=== PATIENT | male | born 1965 | race American Indian/Alaskan Native ===

== ENCOUNTER 2017-10-19 13:49 | Inpatient (IN) | payer MEDICAID, OTHER ==
[2017-10-19 13:49] VITALS: BMI 27.3
[2017-10-19] MEDS ORDERED: Albuterol-Ipratrop 3 mg / 0.5 (3 ml) UD INH STA (14:32)
--- NOTE | 2017-10-19 14:45 | C.PDOC ---
History Of Present Illness Patient is a 52 y/o M presenting for detox from heroin. Last used this morning. Denies alcohol use. Reports chronic bronchitis and reports that he refuses to use his inhaler but will take a breathing treatment in the ED. Denies IVDA. Denies other somatic complaints. Pre-screened prior to arrival. Time Seen by Provider: 10/19/17 14:07 Chief Complaint (Nursing): Medical Clearance Past Medical History Vital Signs: Last Vital Signs Temp 98.1 F 10/19/17 16:51 Pulse 54 L 10/19/17 16:51 Resp 20 10/19/17 16:51 BP 161/82 H 10/19/17 16:51 Pulse Ox 92 L 10/19/17 17:13 - Medical History PMH: Bronchitis Denies: Diabetes, Hepatitis, HIV, HTN, Seizures, Sexually Transmitted Disease Family History: States: No Known Family Hx - Social History Hx Alcohol Use: No Hx Substance Use: Yes Review Of Systems Except As Marked, All Systems Reviewed And Found Negative. Constitutional: Negative for: Fever, Chills Cardiovascular: Negative for: Chest Pain, Palpitations, Orthopnea Respiratory: Positive for: Cough (x2 weeks), Wheezing. Negative for: Shortness of Breath, SOB with Excertion Gastrointestinal: Negative for: Nausea, Vomiting, Abdominal Pain, Diarrhea, Constipation Musculoskeletal: Negative for: Neck Pain Skin: Negative for: Rash Neurological: Negative for: Weakness, Numbness Psych: Negative for: Anxiety, Depression, Suicidal ideation Physical Exam - Physical Exam Appears: Well, Non-toxic, No Acute Distress Skin: Normal Color, Warm, Dry Head: Atraumatic, Normacephalic Eye(s): bilateral: Normal Inspection, PERRL, EOMI Neck: Supple Chest: Symmetrical Cardiovascular: Rhythm Regular Respiratory: Wheezing (scant) Gastrointestinal/Abdominal: Soft, No Tenderness, No Mass, No Distention Back: Normal Inspection, No CVA Tenderness Extremity: Normal ROM Neurological/Psych: Oriented x3, Normal Speech, Normal Cranial Nerves, Normal Motor, Normal Sensation Gait: Steady ED Course And Treatment - Laboratory Results Result Diagrams: 10/19/17 14:50 10/19/17 14:50 O2 Sat by Pulse Oximetry: 92 Medical Decision Making Medical Decision Making: EKG shows NSR at 62 bpm with normal intervals and no ST changes. Cxray negative for active pulmonary disease. Given nebulizer for wheezing on exam ( has home nebulizer that he refuses to use) UA shows 9 wbc, trace leukocytes, 1 rbc and rare bacteria. Denies dysuria, abdominal pain, flank pain, or penile discharge. Instructed to follow-up with urologist after dc from detox. On reevaluation, wheezing is improved. He is ambulating around the ED without issue with O2 sat>95%. He has no somatic complaints. Medically cleared and accepted by Dr. Durbin Disposition - Disposition Disposition: HOSPITALIZED Disposition Time: 15:41 Condition: GOOD - Clinical Impression Clinical Impression: Hematuria, Opioid use disorder, mild, abuse, Leukocytes in urine
[2017-10-19] MEDS ORDERED: Albuterol-Ipratrop 3 mg / 0.5 (3 ml) UD ONE (14:51)
[2017-10-19 14:57] LABS: BASO # 0.1 K/uL (0.0-0.2); BASO % 1.3 % (0.0-2.0); EOS # 0.1 K/uL (0.0-0.7); EOS % 1.3 % (0.0-4.0); HEMATOCRIT 46.2 % (35.0-51.0); LYMPH # 1.3 K/uL (1.0-4.3); LYMPH % 19.6 % (20.0-40.0); MEAN CELL VOLUME 90.6 fL (80.0-94.0); MEAN PLATELET VOLUME 8.9 fL (7.2-11.7); MONO # 0.4 K/uL (0.0-0.8); MONO % 6.3 % (0.0-10.0); NRBC % 0.1 % (0.0-2.0); RED CELL DISTRIBUTION WIDTH 14.3 % (11.5-14.5); WHITE BLOOD COUNT 6.7 K/uL (4.8-10.8)
--- NOTE | 2017-10-19 14:59 | RAD ---
HISTORY: COMPARISON: No prior. TECHNIQUE: Chest PA and lateral FINDINGS: LINES AND TUBES: None. LUNG AND PLEURA: The lungs are well inflated. There is mild pulmonary venous congestion. HEART AND MEDIASTINUM: There is mild cardiomegaly. There is prominent central vasculature. The hilar and mediastinal contours are within normal limits. SKELETAL STRUCTURES: The bony structures are within normal limits for the patient's age. VISUALIZED UPPER ABDOMEN: Normal. OTHER FINDINGS: None. IMPRESSION: No active pulmonary disease.
[2017-10-19 15:01] LABS: RBC URINE 1 /hpf (0-3); URINE BACTERIA RARE (<OCC); URINE BILIRUBIN NEGATIVE (NEGATIVE); URINE BLOOD NEGATIVE (NEGATIVE); URINE COLOR Yellow (YELLOW); URINE GLUCOSE (UA) NORMAL (Normal); URINE KETONE NEGATIVE (NEGATIVE); URINE LEUKOCYTE ESTERASE TRACE Leu/uL (Negative); URINE PROTEIN NEGATIVE (NEGATIVE); URINE UROBILINOGEN NORMAL mg/dL (0.2-1.0); WBC URINE 9 /hpf (0-5)
[2017-10-19 15:21] LABS: ALB/GLOB RATIO 1.4 (1.0-2.1); ALCOHOL SERUM < 10 mg/dl (0-10); ALKALINE PHOSPHATASE 55 U/L (38-126); ALT/SGPT 50 U/L (21-72); AST/SGOT 36 U/L (17-59); BILIRUBIN,TOTAL 0.5 mg/dL (0.2-1.3); BLOOD UREA NITROGEN 14 mg/dL (9-20); CALCIUM 8.1 mg/dl (8.6-10.4); CARBON DIOXIDE 39 mmol/L (22-30); CHLORIDE 97 mmol/L (98-107); GFR AFRICAN-AMERICAN > 60; GLUCOSE,RANDOM 80 mg/dL (75-110); SODIUM 140 mmol/L (132-148); TOTAL PROTEIN 7.3 g/dL (6.3-8.3)
[2017-10-19] MEDS ORDERED: Albuterol HFA 90 mcg/actuation (8 g) INH PRN (16:48)
[2017-10-19] MEDS ORDERED: Aluminum Hydroxide/Magnesium Hydroxide Susp (30 mL) PO PRN (16:48)
[2017-10-19] MEDS ORDERED: Buprenorphine Hydrochloride 2 mg SL ONE ×2 (16:51→18:00)
--- NOTE | 2017-10-19 18:29 | PCM.BM ---
<Catalina Dsouza - Last Filed: 10/19/17 18:28> Treatment Plan Problems - Problems identified on initial assessmt potiential for opiate withdrawal Date Initiated: 10/19/17 Time Initiated: 18:28 Assessment reference: NA Status: Active Treatment assets and liabiliti Patient Assests: ADL independent, physically healthy Patient Liabilities: substance abuse - Milieu Protocol Maintain good personal hygiene: daily Encourage regular showers, daily Remind patient to perform daily oral care, daily Assist patient to perform ADL's Maintain personal safety: every shift Educate patient to report safety concerns to staff, every shift Monitor environment for contraband/sharps Medication safety: Monitor for expected outcome, potential side effects: every shift, Assess barriers to learning: every shift, Assess readiness for medication education: every shift <Wilfredo Cabello - Last Filed: 10/21/17 17:24> - Diagnosis (1) Opioid use disorder, severe, dependence Status: Acute Interventions: 10/21/17 17:23 Assess 7x/week regarding severity of withdrawal Educate regarding risks, benefits, side effects and alternatives of medications Use Motivational Interviewing for abstinence Use CBT for relapse prevention Medication management for withdrawal symptoms Encourage medication assisted treatment
[2017-10-20] MEDS ORDERED: Albuterol-Ipratrop 3 mg / 0.5 (3 ml) UD INH PRN (00:34)
--- NOTE | 2017-10-20 06:52 | CP.PCM.CON ---
<Carleen Tran E - Last Filed: 10/20/17 06:42> History of Present Illness - History of Present Illness History of Present Illness: Hospitalist service consult CC: " Wheezing" HPI: (Patient is uncooperative during the encounter) Patient is a 52 year old male with past medical history of bronchitis, who presents to [facility] for heroin detox; patient last used heroin yesterday morning. Consult was placed to the medicine hospitalist due to severe wheezing on exam. Patient states that he has baseline wheezing due to chronic bronchitis. Patient denies chest pain, palpitations, dizziness, headache, abdominal pain but admits to SOB, productive cough, and wheezing). PMD: Luis Eduardo Martinez PMHx: Bronchitis PSHx: Denies FHx: Denies Medications: Albuterol Inhaler ( does not use because he does not like it) Allergies: NKDA Social Hx: does not live alone (did not share who he lives with), admits to tobacco use since 18 years old (1 PPD), heroin use and denies ETOH use Past Patient History - Past Social History Smoking Status: Former Smoker - CARDIAC Hx Hypertension: No - PULMONARY Hx Bronchitis: Yes - NEUROLOGICAL Hx Seizures: No - HEMATOLOGICAL/ONCOLOGICAL Hx Human Immunodeficiency Virus (HIV): No - MUSCULOSKELETAL/RHEUMATOLOGICAL Hx Falls: No - GENITOURINARY/GYNECOLOGICAL Hx Sexually Transmitted Disorders: No - PSYCHIATRIC Hx Substance Use: Yes - SURGICAL HISTORY Hx Surgeries: No Meds Allergies/Adverse Reactions: Allergies Allergy/AdvReac Type Severity Reaction Status Date / Time No Known Allergies Allergy Verified 10/19/17 14:00 - Medications Medications: Current Medications Al Hydrox/Mg Hydrox/Simethicone (Maalox 30 Ml) 30 ml PO TID PRN PRN Reason: Indigestion / Heartburn Albuterol (Ventolin Hfa 90 Mcg/Actuation (8 G)) 1 puff INH RQ4 PRN PRN Reason: SOB Albuterol/Ipratropium (Duoneb 3 Mg/0.5 Mg (3 Ml) Ud) 3 ml INH RQ8 PRN PRN Reason: Shortness of Breath Last Admin: 10/20/17 00:50 Dose: 3 ml Buprenorphine HCl (Subutex) 0 mg SL .TAPER TRISHA PRN Reason: Taper Stop: 10/24/17 09:59 Clonidine HCl (Catapres) 0.1 mg PO Q8 PRN PRN Reason: COWS Score More or Equal to 5 Hydroxyzine HCl (Atarax) 25 mg PO Q4H PRN PRN Reason: Anxiety Loperamide HCl (Imodium) 2 mg PO Q8 PRN PRN Reason: Diarrhea Ondansetron HCl (Zofran Tab) 4 mg PO Q8 PRN PRN Reason: Nausea/Vomiting Trazodone HCl (Desyrel) 100 mg PO HS PRN PRN Reason: Insomnia Results - Vital Signs Recent Vital Signs: Last Vital Signs Temp 98.2 F 10/20/17 06:18 Pulse 55 L 10/20/17 06:18 Resp 18 10/20/17 06:18 BP 151/87 H 10/20/17 06:18 Pulse Ox 95 10/20/17 06:18 - Labs Result Diagrams: 10/19/17 14:50 10/19/17 14:50 Labs: Laboratory Results - last 24 hr 10/19/17 10/19/17 10/19/17 14:50 14:50 14:52 WBC 6.7 RBC 5.09 Hgb 14.8 Hct 46.2 MCV 90.6 MCH 29.0 MCHC 32.0 L RDW 14.3 Plt Count 209 MPV 8.9 Neut % (Auto) 71.5 Lymph % (Auto) 19.6 L [place] % (Auto) 6.3 Eos % (Auto) 1.3 Baso % (Auto) 1.3 Neut # 4.8 Lymph # 1.3 Sierra # 0.4 Eos # 0.1 Baso # 0.1 Sodium 140 Potassium 4.0 Chloride 97 L Carbon Dioxide 39 H Anion Gap 8 L BUN 14 Creatinine 0.8 Est GFR ( Amer) > 60 Est GFR (Non-Af Amer) > 60 Random Glucose 80 Calcium 8.1 L Total Bilirubin 0.5 AST 36 ALT 50 Alkaline Phosphatase 55 Total Protein 7.3 Albumin 4.3 Globulin 3.0 Albumin/Globulin Ratio 1.4 Urine Color Yellow Urine Clarity Clear Urine pH 5.0 Ur Specific [place] 1.016 Urine Protein Negative Urine Glucose (UA) Normal Urine Ketones Negative Urine Blood Negative Urine Nitrate Negative Urine Bilirubin Negative Urine Urobilinogen Normal Ur Leukocyte Esterase Trace Urine WBC (Auto) 9 H Urine RBC (Auto) 1 Ur Squamous Epith Cells 3 Urine Bacteria Rare Urine Opiates Screen Urine Methadone Screen Ur Barbiturates Screen Ur Phencyclidine Scrn Ur Amphetamines Screen U Benzodiazepines Scrn U Oth Cocaine Metabols U Cannabinoids Screen Alcohol, Quantitative < 10 Influenza Typ A,B (EIA) 10/19/17 10/19/17 14:52 14:56 WBC RBC Hgb Hct MCV MCH MCHC RDW Plt Count MPV Neut % (Auto) Lymph % (Auto) Sierra % (Auto) Eos % (Auto) Baso % (Auto) Neut # Lymph # Sierra # Eos # Baso # Sodium Potassium Chloride Carbon Dioxide Anion Gap BUN Creatinine Est GFR ( Amer) Est GFR (Non-Af Amer) Random Glucose Calcium Total Bilirubin AST ALT Alkaline Phosphatase Total Protein Albumin Globulin Albumin/Globulin Ratio Urine Color Urine Clarity Urine pH Ur Specific [place] Urine Protein Urine Glucose (UA) Urine Ketones Urine Blood Urine Nitrate Urine Bilirubin Urine Urobilinogen Ur Leukocyte Esterase Urine WBC (Auto) Urine RBC (Auto) Ur Squamous Epith Cells Urine Bacteria Urine Opiates Screen Positive H Urine Methadone Screen Negative Ur Barbiturates Screen Negative Ur Phencyclidine Scrn Negative Ur Amphetamines Screen Negative U Benzodiazepines Scrn Negative U Oth Cocaine Metabols Negative U Cannabinoids Screen Negative Alcohol, Quantitative Influenza Typ A,B (EIA) Negative for flu a/b <[place] P - Last Filed: 10/20/17 07:00> Meds - Medications Medications: Current Medications Al Hydrox/Mg Hydrox/Simethicone (Maalox 30 Ml) 30 ml PO TID PRN PRN Reason: Indigestion / Heartburn Albuterol/Ipratropium (Duoneb 3 Mg/0.5 Mg (3 Ml) Ud) 3 ml INH RQ6 TRISHA Budesonide (Pulmicort Respules) 0.5 mg INH RQ12 TRISHA Buprenorphine HCl (Subutex) 0 mg SL .TAPER TRISHA PRN Reason: Taper Stop: 10/24/17 09:59 Clonidine HCl (Catapres) 0.1 mg PO Q8 PRN PRN Reason: COWS Score More or Equal to 5 Hydroxyzine HCl (Atarax) 25 mg PO Q4H PRN PRN Reason: Anxiety Loperamide HCl (Imodium) 2 mg PO Q8 PRN PRN Reason: Diarrhea Ondansetron HCl (Zofran Tab) 4 mg PO Q8 PRN PRN Reason: Nausea/Vomiting Prednisone (Prednisone Tab) 40 mg PO DAILY TRISHA Stop: 10/25/17 10:01 Trazodone HCl (Desyrel) 100 mg PO HS PRN PRN Reason: Insomnia Results - Vital Signs Recent Vital Signs: Last Vital Signs Temp 98.2 F 10/20/17 06:18 Pulse 55 L 10/20/17 06:18 Resp 18 10/20/17 06:18 BP 151/87 H 10/20/17 06:18 Pulse Ox 95 10/20/17 06:18 - Labs Result Diagrams: 10/19/17 14:50 10/19/17 14:50 Labs: Laboratory Results - last 24 hr 10/19/17 10/19/17 10/19/17 14:50 14:50 14:52 WBC 6.7 RBC 5.09 Hgb 14.8 Hct 46.2 MCV 90.6 MCH 29.0 MCHC 32.0 L RDW 14.3 Plt Count 209 MPV 8.9 Neut % (Auto) 71.5 Lymph % (Auto) 19.6 L [place] % (Auto) 6.3 Eos % (Auto) 1.3 Baso % (Auto) 1.3 Neut # 4.8 Lymph # 1.3 Sierra # 0.4 Eos # 0.1 Baso # 0.1 Sodium 140 Potassium 4.0 Chloride 97 L Carbon Dioxide 39 H Anion Gap 8 L BUN 14 Creatinine 0.8 Est GFR ( Amer) > 60 Est GFR (Non-Af Amer) > 60 Random Glucose 80 Calcium 8.1 L Total Bilirubin 0.5 AST 36 ALT 50 Alkaline Phosphatase 55 Total Protein 7.3 Albumin 4.3 Globulin 3.0 Albumin/Globulin Ratio 1.4 Urine Color Yellow Urine Clarity Clear Urine pH 5.0 Ur Specific [place] 1.016 Urine Protein Negative Urine Glucose (UA) Normal Urine Ketones Negative Urine Blood Negative Urine Nitrate Negative Urine Bilirubin Negative Urine Urobilinogen Normal Ur Leukocyte Esterase Trace Urine WBC (Auto) 9 H Urine RBC (Auto) 1 Ur Squamous Epith Cells 3 Urine Bacteria Rare Urine Opiates Screen Urine Methadone Screen Ur Barbiturates Screen Ur Phencyclidine Scrn Ur Amphetamines Screen U Benzodiazepines Scrn U Oth Cocaine Metabols U Cannabinoids Screen Alcohol, Quantitative < 10 Influenza Typ A,B (EIA) 10/19/17 10/19/17 14:52 14:56 WBC RBC Hgb Hct MCV MCH MCHC RDW Plt Count MPV Neut % (Auto) Lymph % (Auto) Sierra % (Auto) Eos % (Auto) Baso % (Auto) Neut # Lymph # Sierra # Eos # Baso # Sodium Potassium Chloride Carbon Dioxide Anion Gap BUN Creatinine Est GFR ( Amer) Est GFR (Non-Af Amer) Random Glucose Calcium Total Bilirubin AST ALT Alkaline Phosphatase Total Protein Albumin Globulin Albumin/Globulin Ratio Urine Color Urine Clarity Urine pH Ur Specific [place] Urine Protein Urine Glucose (UA) Urine Ketones Urine Blood Urine Nitrate Urine Bilirubin Urine Urobilinogen Ur Leukocyte Esterase Urine WBC (Auto) Urine RBC (Auto) Ur Squamous Epith Cells Urine Bacteria Urine Opiates Screen Positive H Urine Methadone Screen Negative Ur Barbiturates Screen Negative Ur Phencyclidine Scrn Negative Ur Amphetamines Screen Negative U Benzodiazepines Scrn Negative U Oth Cocaine Metabols Negative U Cannabinoids Screen Negative Alcohol, Quantitative Influenza Typ A,B (EIA) Negative for flu a/b Attending/Attestation - Attestation I have personally seen and examined this patient.: Yes I have fully participated in the care of the patient.: Yes I have reviewed all pertinent clinical information: Yes Notes (Text): Assessment * Chronic bronchitis, and wheezing likely related with smoking and sniffing heroin, denies h/o asthma * Patient here mainly of heroin detox * Tobacco abuse of 1PPD Plan * Prednisone 40mg daily x 5 days * Pulmicort 0.5mg via neb bid * Duoneb q6hr * Counselled about tobacco and heroin cessation * Recommend out patient PFT and having PMD * See orders for detail.
[2017-10-20] MEDS: Albuterol-Ipratrop 3 mg / 0.5 (3 ml) UD INH SCH ×3 (08:39→20:53)
[2017-10-20] MEDS: Budesonide 0.5 mg/2 ml Inhal Susp UD INH SCH ×2 (08:46→20:53)
[2017-10-20] MEDS: Buprenorphine Hydrochloride 2 mg SL SCH (09:17)
--- NOTE | 2017-10-20 09:37 | CP.PCM.PN ---
<QuangBayron - Last Filed: 10/20/17 10:07> Subjective - Date & Time of Evaluation Date of Evaluation: 10/20/17 Time of Evaluation: 08:45 - Subjective Subjective: Medicine note- Hospitalist Service Patient was seen and examined at bedside. Patient reports that he does not feel short of breath, but he is actively wheezing. He says that he is usually wheezing at baseline. He states he still smokes ciggarettes, about 1 ppd since he was 18. No events overnight, per nursing. Objective - Vital Signs/Intake and Output Vital Signs (last 24 hours): Temp Pulse Resp BP Pulse Ox 98.2 F 55 L 18 151/87 H 95 10/20/17 06:18 10/20/17 06:18 10/20/17 06:18 10/20/17 06:18 10/20/17 06:18 - Medications Medications: Current Medications Al Hydrox/Mg Hydrox/Simethicone (Maalox 30 Ml) 30 ml PO TID PRN PRN Reason: Indigestion / Heartburn Albuterol/Ipratropium (Duoneb 3 Mg/0.5 Mg (3 Ml) Ud) 3 ml INH RQ6 TIRSHA Last Admin: 10/20/17 08:39 Dose: 3 ml Budesonide (Pulmicort Respules) 0.5 mg INH RQ12 TRISHA Last Admin: 10/20/17 08:46 Dose: 0.5 mg Buprenorphine HCl (Subutex) 0 mg SL .TAPER TRISHA PRN Reason: Taper Stop: 10/24/17 09:59 Last Admin: 10/20/17 09:17 Dose: 8 mg Clonidine HCl (Catapres) 0.1 mg PO Q8 PRN PRN Reason: COWS Score More or Equal to 5 Hydroxyzine HCl (Atarax) 25 mg PO Q4H PRN PRN Reason: Anxiety Loperamide HCl (Imodium) 2 mg PO Q8 PRN PRN Reason: Diarrhea Ondansetron HCl (Zofran Tab) 4 mg PO Q8 PRN PRN Reason: Nausea/Vomiting Prednisone (Prednisone Tab) 40 mg PO DAILY TRISHA Stop: 10/25/17 10:01 Trazodone HCl (Desyrel) 100 mg PO HS PRN PRN Reason: Insomnia - Labs Labs: 10/19/17 14:50 10/19/17 14:50 - Constitutional Appears: Non-toxic, No Acute Distress - Head Exam Head Exam: ATRAUMATIC, NORMAL INSPECTION, NORMOCEPHALIC - Eye Exam Pupil Exam: NORMAL ACCOMODATION, PERRL - ENT Exam ENT Exam: Mucous Membranes Moist - Respiratory Exam Respiratory Exam: Wheezes, NORMAL BREATHING PATTERN. absent: Prolonged Expiratory Phase, Rales, Rhonchi - Cardiovascular Exam Cardiovascular Exam: REGULAR RHYTHM, +S1, +S2 - GI/Abdominal Exam GI & Abdominal Exam: Soft, Normal Bowel Sounds. absent: Tenderness, Diminished Bowel Sounds, Hernia, Hypoactive Bowel Sounds - Neurological Exam Neurological Exam: Alert, Awake, Oriented x3 - Psychiatric Exam Psychiatric exam: Normal Affect, Normal Mood - Skin Skin Exam: Dry, Intact, Normal Color, Warm Assessment and Plan - Assessment and Plan (Free Text) Assessment: * Chronic bronchitis, and wheezing likely related with smoking and sniffing heroin, denies h/o asthma * CXR 10/19/17- No active pulmonary disease * Prednisone 40mg daily x 5 days * Pulmicort 0.5mg via neb bid * Duoneb q6hr * Heroin Detox * Management as per psychiatry * * Tobacco abuse of 1PPD * Counselled about tobacco and heroin cessation * Recommend out patient PFT and having PMD <Armando Sol - Last Filed: 10/20/17 11:29> Objective - Vital Signs/Intake and Output Vital Signs (last 24 hours): Temp Pulse Resp BP Pulse Ox 98.2 F 55 L 18 151/87 H 95 10/20/17 06:18 10/20/17 06:18 10/20/17 06:18 10/20/17 06:18 10/20/17 06:18 - Medications Medications: Current Medications Al Hydrox/Mg Hydrox/Simethicone (Maalox 30 Ml) 30 ml PO TID PRN PRN Reason: Indigestion / Heartburn Albuterol/Ipratropium (Duoneb 3 Mg/0.5 Mg (3 Ml) Ud) 3 ml INH RQ6 COUNTS INCLUDE 234 BEDS AT THE [facility] Last Admin: 10/20/17 08:39 Dose: 3 ml Budesonide (Pulmicort Respules) 0.5 mg INH RQ12 COUNTS INCLUDE 234 BEDS AT THE [facility] Last Admin: 10/20/17 08:46 Dose: 0.5 mg Buprenorphine HCl (Subutex) 8 mg SL DAILY COUNTS INCLUDE 234 BEDS AT THE [facility] PRN Reason: Taper Stop: 10/24/17 09:59 Last Admin: 10/20/17 09:17 Dose: 8 mg Clonidine HCl (Catapres) 0.1 mg PO Q8 PRN PRN Reason: COWS Score More or Equal to 5 Hydroxyzine HCl (Atarax) 25 mg PO Q4H PRN PRN Reason: Anxiety Loperamide HCl (Imodium) 2 mg PO Q8 PRN PRN Reason: Diarrhea Ondansetron HCl (Zofran Tab) 4 mg PO Q8 PRN PRN Reason: Nausea/Vomiting Prednisone (Prednisone Tab) 40 mg PO DAILY TRISHA Stop: 10/25/17 10:01 Last Admin: 10/20/17 10:20 Dose: 40 mg Trazodone HCl (Desyrel) 100 mg PO HS PRN PRN Reason: Insomnia - Labs Labs: 10/19/17 14:50 10/19/17 14:50 Attending/Attestation - Attestation I have personally seen and examined this patient.: Yes I have fully participated in the care of the patient.: Yes I have reviewed all pertinent clinical information, including history, physical exam and plan: Yes Notes (Text): 10/20/17 11:26 Medical Attending: Patient was seen and examined by me as well. Reviewed above note by the resident and agree The patient does have some wheezing on exam. Would continue with the present regimen that he is on He reports + sputum that is clear. Denied fever, denied chills, denied chest pain and denied abdominal pain. He reports eating and bathroom are ok thank you Armando Sol
--- NOTE | 2017-10-20 14:54 | PCM.PSYCH ---
Initial Psychiatric Evaluation - Initial Psychiatric Evaluation Type of Admission: Voluntary Legal Status: Capacity Chief Complaint (in patient's own words): I am here for the treatment of withdrawing from heroin. History of Present Illness and Precipitating Events: Patient is a 52 years old, single, unemployed, -[place] male with no previous psychiatric history was admitted for the treatment of withdrawing from heroine. Reported started heroine at the 19 years of age, increase gradually up to a bundle, sniffing. Was using daily. His last use was 1 day ago. Patient has history of 2 previous detox and to rehabs. Denied use of any drugs including alcohol, cocaine and cannabis. Patient smokes 1 pack of cigarettes daily but is refusing to take nicotine patch. Patient was born in [place], has 11th grade of education, not working, on disability. Patient lives with his aunt, never and has 1 grownup daughter. Current Medications: Active Medications Generic Name Dose Route Start Last Admin Trade Name Freq PRN Reason Stop Dose Admin Al Hydrox/Mg Hydrox/Simethicone 30 ml 10/19/17 16:48 Maalox 30 Ml PO TID PRN Indigestion / Heartburn Albuterol/Ipratropium 3 ml 10/20/17 08:00 10/20/17 14:15 Duoneb 3 Mg/0.5 Mg (3 Ml) Ud INH 3 ml RQ6 TRISHA Administration Budesonide 0.5 mg 10/20/17 08:00 10/20/17 08:46 Pulmicort Respules INH 0.5 mg RQ12 TRISHA Administration Buprenorphine HCl 8 mg 10/20/17 10:00 10/20/17 09:17 Subutex SL 10/24/17 09:59 8 mg DAILY TRISHA Administration Taper Clonidine HCl 0.1 mg 10/19/17 16:48 Catapres PO Q8 PRN COWS Score More or Equal to 5 Hydroxyzine HCl 25 mg 10/19/17 16:48 Atarax PO Q4H PRN Anxiety Loperamide HCl 2 mg 10/19/17 16:48 Imodium PO Q8 PRN Diarrhea Ondansetron HCl 4 mg 10/19/17 16:48 Zofran Tab PO Q8 PRN Nausea/Vomiting Prednisone 40 mg 10/20/17 10:00 10/20/17 10:20 Prednisone Tab PO 12/21/17 10:01 40 mg DAILY TRISHA Administration Trazodone HCl 100 mg 10/19/17 16:48 Desyrel PO HS PRN Insomnia Past Psychiatric History - Past Psychiatric History Previous Treatment History: Inpatient Prior Professional Help: 2 previous detox and 2 previous rehabs History of Abuse: None reported History of ETOH/Drug Use: See HPI History of Family Illness: None reported Pertinent Medical Hx (Current Medical&Sleep Prob, Allergies): Allergies Allergy/AdvReac Type Severity Reaction Status Date / Time No Known Allergies Allergy Verified 10/19/17 14:00 No Known Home Med 07/11/16 Review of Systems - Psychiatric Psychiatric: Irritability Mental Status Examination - Personal Presentation Personal Presentation: Looks stated age - Affect Affect: Other (Appropriate) - Motor Activity Motor Activity: Psychomotor Agitation (Mild) - Reliability in Providing Information Reliability in Providing Information: Fair - Speech Speech: Organized - Mood Mood: Other (Irritable) - Formal Thought Process Formal Thought Process: No Impairment - Hallucinations/Delusions Hallucinations: Other (None reported) Delusions: Other - Obsessions/Compulsions Obsessions: None Compulsions: None - Cognitive Functions Orientation: Person, Place, Situation, Time Sensorium: Alert Attention/Concentration: Attentive Abstract Thinking: [place] Estimate of Intelligence: Average Judgement: Intact, as evidence by: Insight regarding need for hospitalization Memory: Recent intact, as evidence by: 3/3 object recall, Remote intact, as evidenced by: Ability to recall historical events - Risk Risk: Withdrawal, Diminished functioning - Strength & Assets Inventory Strength & Assets Inventory: Cooperative - Limitations Limitations: Other DSM 5 DX - DSM 5 DSM 5 Diagnosis: Opioid use disorder severe - Recommended/Plan of Treatment Treatment Recommendations and Plan of Treatment: Patient education. Supportive therapy. We will continue methadone taper for opioid withdrawal symptoms. Other as needed medications. Patient did not decide for any after care. Projected ELOS: 4-5 days - Smoking Cessation Smoking Cessation Initiated: No Reason for not providing: Patient refused
[2017-10-21] MEDS: Albuterol-Ipratrop 3 mg / 0.5 (3 ml) UD INH SCH ×5 (02:35→20:20)
[2017-10-21] MEDS: Budesonide 0.5 mg/2 ml Inhal Susp UD INH SCH ×2 (08:21→20:20)
--- NOTE | 2017-10-21 09:27 | CP.PCM.PN ---
<QuangBayron - Last Filed: 10/21/17 09:23> Subjective - Date & Time of Evaluation Date of Evaluation: 10/21/17 Time of Evaluation: 08:00 - Subjective Subjective: Medicine Note- Hospitalist Service Patient was seen and examined at bedside. Patient reports he is feeling better, he states he is still withdrawing but he feels better. He says his breathing is okay, he is wheezing but comfortable. No events overnight, per nursing. Objective - Vital Signs/Intake and Output Vital Signs (last 24 hours): Temp Pulse Resp BP Pulse Ox 98.3 F 61 18 159/89 H 95 10/21/17 06:37 10/21/17 06:37 10/21/17 06:37 10/21/17 06:37 10/21/17 06:37 - Medications Medications: Current Medications Al Hydrox/Mg Hydrox/Simethicone (Maalox 30 Ml) 30 ml PO TID PRN PRN Reason: Indigestion / Heartburn Albuterol/Ipratropium (Duoneb 3 Mg/0.5 Mg (3 Ml) Ud) 3 ml INH RQ6 [facility] Last Admin: 10/21/17 08:21 Dose: Not Given Budesonide (Pulmicort Respules) 0.5 mg INH RQ12 [facility] Last Admin: 10/21/17 08:21 Dose: 0.5 mg Buprenorphine HCl (Subutex) 8 mg SL DAILY [facility] PRN Reason: Taper Stop: 10/24/17 09:59 Last Admin: 10/20/17 09:17 Dose: 8 mg Clonidine HCl (Catapres) 0.1 mg PO Q8 PRN PRN Reason: COWS Score More or Equal to 5 Last Admin: 10/20/17 18:24 Dose: 0.1 mg Hydroxyzine HCl (Atarax) 25 mg PO Q4H PRN PRN Reason: Anxiety Last Admin: 10/20/17 21:05 Dose: 25 mg Loperamide HCl (Imodium) 2 mg PO Q8 PRN PRN Reason: Diarrhea Ondansetron HCl (Zofran Tab) 4 mg PO Q8 PRN PRN Reason: Nausea/Vomiting Prednisone (Prednisone Tab) 40 mg PO DAILY [facility] Stop: 10/25/17 10:01 Last Admin: 10/20/17 10:20 Dose: 40 mg Trazodone HCl (Desyrel) 100 mg PO HS PRN PRN Reason: Insomnia Last Admin: 10/20/17 21:05 Dose: 100 mg - Labs Labs: 10/19/17 14:50 10/19/17 14:50 - Constitutional Appears: Non-toxic, No Acute Distress - Head Exam Head Exam: ATRAUMATIC, NORMAL INSPECTION, NORMOCEPHALIC - Eye Exam Pupil Exam: NORMAL ACCOMODATION - ENT Exam ENT Exam: Mucous Membranes Moist - Respiratory Exam Respiratory Exam: Wheezes (diffuse), NORMAL BREATHING PATTERN. absent: Rales - Cardiovascular Exam Cardiovascular Exam: REGULAR RHYTHM, +S1, +S2 - Extremities Exam Extremities Exam: Normal Capillary Refill - Neurological Exam Neurological Exam: Alert, Awake, Oriented x3 - Psychiatric Exam Psychiatric exam: Normal Affect - Skin Skin Exam: Dry, Intact, Normal Color, Warm Assessment and Plan - Assessment and Plan (Free Text) Assessment: * Chronic bronchitis, and wheezing likely related with smoking and sniffing heroin, denies h/o asthma * CXR 10/19/17- No active pulmonary disease * Prednisone 40mg daily x 5 days * Pulmicort 0.5mg via neb bid * Duoneb q6hr * Heroin Detox * Management as per psychiatry * * Tobacco abuse of 1PPD * Counselled about tobacco and heroin cessation * Recommend out patient PFT and having PMD Patient is to followup with his primary doctor after discharge, as well as a travel counselor automobile club. Patient is to continue his prednisone taper and use albuterol as needed for dyspnea. We will sign off at this time. Reconsult PRN. <Armando Sol - Last Filed: 10/21/17 13:01> Objective - Vital Signs/Intake and Output Vital Signs (last 24 hours): Temp Pulse Resp BP Pulse Ox 97.5 F L 65 18 160/85 H 94 L 10/21/17 10:44 10/21/17 10:44 10/21/17 10:44 10/21/17 10:44 10/21/17 10:44 - Medications Medications: Current Medications Al Hydrox/Mg Hydrox/Simethicone (Maalox 30 Ml) 30 ml PO TID PRN PRN Reason: Indigestion / Heartburn Albuterol/Ipratropium (Duoneb 3 Mg/0.5 Mg (3 Ml) Ud) 3 ml INH RQ6 [facility] Last Admin: 10/21/17 08:21 Dose: Not Given Budesonide (Pulmicort Respules) 0.5 mg INH RQ12 [facility] Last Admin: 10/21/17 08:21 Dose: 0.5 mg Buprenorphine HCl (Subutex) 6 mg SL DAILY [facility] PRN Reason: Taper Stop: 10/24/17 09:59 Last Admin: 10/21/17 10:35 Dose: 6 mg Clonidine HCl (Catapres) 0.1 mg PO Q8 PRN PRN Reason: COWS Score More or Equal to 5 Last Admin: 10/20/17 18:24 Dose: 0.1 mg Hydroxyzine HCl (Atarax) 25 mg PO Q4H PRN PRN Reason: Anxiety Last Admin: 10/20/17 21:05 Dose: 25 mg Loperamide HCl (Imodium) 2 mg PO Q8 PRN PRN Reason: Diarrhea Ondansetron HCl (Zofran Tab) 4 mg PO Q8 PRN PRN Reason: Nausea/Vomiting Prednisone (Prednisone Tab) 40 mg PO DAILY [facility] Stop: 10/25/17 10:01 Last Admin: 10/21/17 10:36 Dose: 40 mg Trazodone HCl (Desyrel) 100 mg PO HS PRN PRN Reason: Insomnia Last Admin: 10/20/17 21:05 Dose: 100 mg - Labs Labs: 10/19/17 14:50 10/19/17 14:50 Attending/Attestation - Attestation I have personally seen and examined this patient.: Yes I have fully participated in the care of the patient.: Yes I have reviewed all pertinent clinical information, including history, physical exam and plan: Yes Notes (Text): 10/21/17 13:00 Medical attending: Patient was seen and examined by me. Agree with the above note by the biomedical photographer He still has some minimal wheezing on exam. Otherwise he appears to be stable. We encouraged avoiding polysubstance abuses thank you Armando Sol
[2017-10-21] MEDS: Buprenorphine Hydrochloride 2 mg SL SCH (10:35)
--- NOTE | 2017-10-21 14:42 | PCM.PYCHPN ---
Psychiatric Progress Note - Psychiatric Progress Note Patient seen today, length of contact: 16 minutes Patient Chief Complaint: "'m feeling better" Problems Identified/Issues Discussed: Patient was seen. Chart was reviewed important content noted. Nurse input received that he had no issues over night. case discussed with staff. The pt is compliant with medications and reports no side-effects. He stated that he is feeling better. His symptoms are improving but needs more time to stabilize. After care discussed, support and psychoeducation given. DSM 5 Symptoms Update: Opioid dependence, withdrawal symptoms. Medication Change: Yes (subutex taper) Medical Record Reviewed: Yes Mental Status Examination - Cognitive Function Orientation: Person, Place, Situation, Time Memory: Intact Attention: WNL Concentration: WNL Association: WNL Fund of Knowledge: WN Decription of patient's judgement and insights: fair/fair Addtional comments: Calm and cooperative - Mood Mood: Neutral - Affect Affect: Constricted - Speech Speech: Appropriate - Formal Thought Process Formal Thought Process: No Impairment Psychotic Thoughts and Behaviors: denied - Suicidal Ideation Suicidal Ideation: No - Homicidal Ideation Homicidal Ideation: No Goal/Treatment Plan - Goal/Treatment Plan Need for Continued Stay: Discharge may exacerbated symptoms, Other Progress Toward Problem(s) and Goals/Treatment Plan: Continue Subutex taper for opioid with-drawl symptoms. Continue treatment as per primary team. Supportive therapy was provided. Estimated Date of D/C: 10/24/17 - Smoking Cessation Smoking Cessation Initiated: No
[2017-10-22] MEDS: Albuterol-Ipratrop 3 mg / 0.5 (3 ml) UD INH SCH ×5 (02:26→19:25)
[2017-10-22] MEDS: Budesonide 0.5 mg/2 ml Inhal Susp UD INH SCH ×2 (08:11→19:25)
[2017-10-22] MEDS: Buprenorphine Hydrochloride 2 mg SL SCH (09:16)
[2017-10-22] MEDS: Pantoprazole 20 mg EC Tab PO SCH (10:06)
--- NOTE | 2017-10-22 13:38 | PCM.PYCHPN ---
Psychiatric Progress Note - Psychiatric Progress Note Patient seen today, length of contact: 16 minutes Patient Chief Complaint: " I am doing well" Problems Identified/Issues Discussed: The pt is seen, chart reviewed, case discussed with staff. The pt is complaint with medications and reports no side-effects No new symptoms, patient states that his symptoms are improving After care discussed, support and psycoeducation given Medication Change: Yes (subutex taper) Medical Record Reviewed: Yes Mental Status Examination - Cognitive Function Orientation: Person, Place, Situation, Time Attention: WNL Concentration: WNL Association: WNL Fund of Knowledge: WNL - Mood Mood: Neutral - Affect Affect: Other (Appropriate) - Speech Speech: Appropriate - Formal Thought Process Formal Thought Process: No Impairment - Suicidal Ideation Suicidal Ideation: No - Homicidal Ideation Homicidal Ideation: No Goal/Treatment Plan - Goal/Treatment Plan Need for Continued Stay: Discharge may exacerbated symptoms, Other Progress Toward Problem(s) and Goals/Treatment Plan: Subutex detox Imodium 2mg PO Q8 PRN (for diarrhea symptoms) Clonidine 0.1mg PO Q8 PRN Attend groups and activities Supportive therapy and psychoeducation [place] for abstinence CBT for relapse prevention Encourage MAT Refer to rehab or IOP, and self-help groups Patient is will to go to an outpatient center upon discharge Estimated Date of D/C: 10/24/17
--- NOTE | 2017-10-22 22:24 | CARD ---
APPROVED REPORT EKG Measurement Heart [id number] <Conclusion> Normal sinus rhythm Normal ECG
[2017-10-23] MEDS: Albuterol-Ipratrop 3 mg / 0.5 (3 ml) UD INH SCH ×2 (01:52→08:29)
[2017-10-23] MEDS: Budesonide 0.5 mg/2 ml Inhal Susp UD INH SCH (08:29)
[2017-10-23] MEDS: Buprenorphine Hydrochloride 2 mg SL SCH (09:11)
[2017-10-23] MEDS: Pantoprazole 20 mg EC Tab PO SCH (09:11)
--- NOTE | 2017-10-23 09:52 | PCM.PYCHDC ---
Mental Status Examination - Mental Status Examination Orientation: Person Discharge Summary - Discharge Note Consultations:: List each consultation separately and include: 1. Reason for request. 2. Findings. 3. Follow-up Summary of Hospital Course include:: 1. Description of specific treatment plan utilized for patients during their course of treatmen. 2. Summarize the time- course for resolution of acute symptoms and/or regressed behaviors. 3. Describe issues identified and worked on during hospitalization. 4. Describe medication utilized. 5. Describe medical problems identified and treated. 6. Reassessment of suicide risk - Final Diagnosis (DSM 5) Condition upon Discharge: GOOD Disposition: HOME/ ROUTINE Prescriptions/Medication Reconciliation: Albuterol/Ipratropium [Duoneb 3 mg/0.5 mg (3 ml) UD] 3 ml INH RQ8 PRN #1 neb PRN Reason: Shortness Of Breath Pantoprazole [Protonix EC Tab] 20 mg PO DAILY #30 ect predniSONE [predniSONE Tab] 40 mg PO DAILY #14 tab traZODone [Desyrel] 100 mg PO HS PRN #30 tab PRN Reason: Insomnia
[2017-10-23 10:21] VITALS: BP 160/89; PULSE 85; RESP 20; TEMP 98.1; O2SAT 98
== END 2017-10-23 10:05 | disposition home or self-care (01) | DRG 745 ==
LOC: C.ER 13:49 → C.7D 15:41
PROVIDERS: ADMIT Psychiatry & Neurology Psychiatry; ATTEND Psychiatry & Neurology Psychiatry
PROC: HZ52ZZZ Individual Psychotherapy for Substance Abuse Treatment, Cognitive-Behavioral (ICD-10-PCS; principal; 2017-10-19)
PROC: HZ2ZZZZ Detoxification Services for Substance Abuse Treatment (ICD-10-PCS; 2017-10-19)
PROC: HZ59ZZZ Individual Psychotherapy for Substance Abuse Treatment, Supportive (ICD-10-PCS; 2017-10-19)
PROC: HZ56ZZZ Individual Psychotherapy for Substance Abuse Treatment, Psychoeducation (ICD-10-PCS; 2017-10-19)
DX: F11.23 Opioid dependence with withdrawal (principal); F17.210 Nicotine dependence, cigarettes, uncomplicated; R31.9 Hematuria, unspecified; J42 Unspecified chronic bronchitis

== ENCOUNTER 2017-12-10 16:12 | Emergency (ER) | payer MEDICAID, OTHER ==
[2017-12-10 16:12] VITALS: BMI 27.3
[2017-12-10] MEDS ORDERED: Albuterol-Ipratrop 3 mg / 0.5 (3 ml) UD ONE ×2 (16:42→19:30)
[2017-12-10] MEDS ORDERED: Albuterol-Ipratrop 3 mg / 0.5 (3 ml) UD INH STA (16:42)
[2017-12-10] MEDS: Albuterol-Ipratrop 3 mg / 0.5 (3 ml) UD IH SCH ×3 (19:15→19:45)
[2017-12-10 19:33] LABS: BASO # 0.1 K/uL (0.0-0.2); BASO % 0.8 % (0.0-2.0); EOS % 0.4 % (0.0-4.0); HEMOGLOBIN 14.9 g/dL (12.0-18.0); LYMPH # 1.5 K/uL (1.0-4.3); LYMPH % 17.6 % (20.0-40.0); MEAN CELL VOLUME 90.7 fL (80.0-94.0); MEAN CORPUSCULAR HEMOGLOBIN 30.2 pg (27.0-31.0); MEAN CORPUSCULAR HGB CONC 33.3 g/dL (33.0-37.0); MEAN PLATELET VOLUME 9.7 fL (7.2-11.7); MONO # 0.5 K/uL (0.0-0.8); MONO % 5.2 % (0.0-10.0); NEUT # 6.7 K/uL (1.8-7.0); NRBC % 0.1 % (0.0-2.0); RBC 4.93 Mil/uL (4.40-5.90); RED CELL DISTRIBUTION WIDTH 14.9 % (11.5-14.5); WHITE BLOOD COUNT 8.8 K/uL (4.8-10.8)
[2017-12-10 19:58] LABS: ALB/GLOB RATIO 1.1 (1.0-2.1); ALBUMIN 4.3 g/dL (3.5-5.0); CALCIUM 8.7 mg/dl (8.6-10.4); GFR AFRICAN-AMERICAN > 60; GFR NON-AFRICAN AMERICAN > 60
[2017-12-10 20:09] LABS: B-TYPE NATRIURETIC PEPTIDE 480 pg/mL (0-900)
[2017-12-10 20:20] LABS: ALT/SGPT 34 U/L (21-72); AST/SGOT 35 U/L (17-59); BLOOD UREA NITROGEN 15 mg/dL (9-20); MAGNESIUM 1.8 mg/dL (1.6-2.3)
--- NOTE | 2017-12-10 21:14 | C.PDOC ---
Time Seen by Provider: 12/10/17 18:46 Chief Complaint (Nursing): Shortness Of Breath History Per: Patient Onset/Duration Of Symptoms: Days (about 1 year) Current Symptoms Are (Timing): Still Present Severity: Moderate Additional History Per: Prior Records Past Medical History Reviewed: Historical Data, Nursing Documentation, Vital Signs Vital Signs: Last Vital Signs Temp 98.3 F 12/10/17 16:31 Pulse 72 12/10/17 16:31 Resp 24 12/10/17 19:34 BP 137/81 12/10/17 16:31 Pulse Ox 97 12/10/17 19:34 - Medical History PMH: Bronchitis - [facility] Procedures DETOXIFICATION SERVICES FOR SUBSTANCE ABUSE TREATMENT (10/19/17) INDIV PSYCHOTHERAPY FOR SUBSTANCE ABUSE TREATMENT, SUPPORT (10/19/17) INDIV PSYCHOTHERAPY FOR SUBSTANCE ABUSE, COGNITIV BEHAVIORAL (10/19/17) INDIV PSYCHOTHERAPY FOR SUBSTANCE ABUSE, PSYCHOEDUCATION (10/19/17) Family History: States: Unknown Family Hx - Social History Hx Tobacco Use: Yes Hx Alcohol Use: No Hx Substance Use: Yes (Snorts Heroin) - Immunization History Hx Tetanus Toxoid Vaccination: No Hx Influenza Vaccination: No Hx Pneumococcal Vaccination: No Review Of Systems Except As Marked, All Systems Reviewed And Found Negative. Constitutional: Negative for: Fever Cardiovascular: Negative for: Chest Pain Respiratory: Positive for: Cough, Shortness of Breath. Negative for: Hemoptysis Gastrointestinal: Negative for: Vomiting, Abdominal Pain Musculoskeletal: Negative for: Neck Pain Skin: Negative for: Rash Neurological: Negative for: Weakness, Numbness Physical Exam - Physical Exam Appears: Non-toxic, No Acute Distress Skin: Normal Color, Warm, Dry, No Rash Head: Atraumatic, Normacephalic Eye(s): bilateral: Normal Inspection, PERRL, EOMI Neck: Normal ROM, Supple Cardiovascular: Rhythm Regular Respiratory: No Accessory Muscle Use, Wheezing Gastrointestinal/Abdominal: Soft, No Tenderness Back: No CVA Tenderness Extremity: Normal ROM Neurological/Psych: Oriented x3, Normal Speech, Normal Motor, Normal Sensation ED Course And Treatment - Laboratory Results Result Diagrams: 12/10/17 19:30 12/10/17 19:30 Lab Interpretation: No Acute Changes ECG: Interpreted By Me, Viewed By Me ECG Rhythm: Sinus Rhythm, Nonspecific Changes ECG Interpretation: No Acute Changes Rate From EC O2 Sat by Pulse Oximetry: 97 Pulse Ox Interpretation: Normal - Radiology CXR: Interpreted by Me, Viewed By Me CXR Interpretation: Yes: COPD Progress - Interventions Interventions:: Observation - Medications Administered Inhaled nebulized: Anticholinergic, Beta-2 agonist Intravenous: Corticosteroid - Data Reviewed Data Reviewed: Lab, Diagnostic imaging, EKG, Old records - Patient Status Patient status: Mostly improved - Continuity of Care Discussed patient case with:: Patient, ED Nurse - Patient Plan Patient Plan: Discharge, F/U with PCP Disposition Counseled Patient/Family Regarding: Studies Performed, Diagnosis, Need For Followup, Rx Given, Smoking Cessation - Disposition Referrals: Luis Eduardo Anthony MD [Staff Provider] - Disposition: HOME/ ROUTINE Disposition Time: 21:14 Condition: IMPROVED Additional Instructions: Follow up with your doctor. Return to the ER if you develop worsening of symptoms or if you have any other concerns. Prescriptions: Albuterol HFA [Ventolin HFA 90 mcg/actuation (8 g)] 2 puff IH Q4 PRN #1 unit PRN Reason: Wheezing predniSONE [predniSONE Tab] 2 tab PO DAILY #10 tab Instructions: COPD (Chronic Obstructive Pulmonary Disease) (ED) - Clinical Impression Clinical Impression: COPD (chronic obstructive pulmonary disease)
[2017-12-10 21:26] VITALS: BP 131/75; PULSE 77; RESP 20; TEMP 98.1; O2SAT 99
--- NOTE | 2017-12-11 09:08 | RAD ---
Chest x-ray two views History: Shortness of breath. Comparison: 12/20/2016 Findings: Mild venous congestion. Right hilar prominence. Mild blunting of the left costophrenic angle. Mild cardiomegaly. Degenerative changes in the spine and shoulders. Impression: Mild venous congestion. Right hilar prominence. Mild blunting of the left costophrenic angle. Mild cardiomegaly.
--- NOTE | 2017-12-11 11:55 | CARD ---
APPROVED REPORT EKG Measurement Heart [id number] <Conclusion> Normal sinus rhythm Normal ECG
== END 2017-12-10 21:26 | disposition home or self-care (01) ==
LOC: C.ER 16:12
DX: J44.9 Chronic obstructive pulmonary disease, unspecified (principal); F17.210 Nicotine dependence, cigarettes, uncomplicated
CPT/HCPCS: 71046; 80053; 83735; 83880; 84484; 85025; 93005; 94640; 96374; 99283; J2930

== ENCOUNTER 2017-12-16 21:14 | Inpatient (IN) | payer MEDICAID, OTHER ==
[2017-12-16 21:14] VITALS: BMI 27.3
[2017-12-17 00:35] LABS: BASO # 0.1 K/uL (0.0-0.2); BASO % 0.8 % (0.0-2.0); EOS # 0.1 K/uL (0.0-0.7); HEMOGLOBIN 14.7 g/dL (12.0-18.0); LYMPH # 1.9 K/uL (1.0-4.3); LYMPH % 21.9 % (20.0-40.0); MEAN CELL VOLUME 90.5 fL (80.0-94.0); MEAN CORPUSCULAR HEMOGLOBIN 30.2 pg (27.0-31.0); MEAN CORPUSCULAR HGB CONC 33.4 g/dL (33.0-37.0); MEAN PLATELET VOLUME 9.2 fL (7.2-11.7); MONO # 0.8 K/uL (0.0-0.8); MONO % 8.7 % (0.0-10.0); NEUT % 67.6 % (50.0-75.0); RBC 4.87 Mil/uL (4.40-5.90); RED CELL DISTRIBUTION WIDTH 15.3 % (11.5-14.5); WHITE BLOOD COUNT 8.8 K/uL (4.8-10.8)
[2017-12-17 01:00] LABS: ALB/GLOB RATIO 1.1 (1.0-2.1); ALBUMIN 4.1 g/dL (3.5-5.0); ALT/SGPT 32 U/L (21-72); AST/SGOT 35 U/L (17-59); BLOOD UREA NITROGEN 14 mg/dL (9-20); CALCIUM 8.6 mg/dl (8.6-10.4); GFR AFRICAN-AMERICAN > 60; GFR NON-AFRICAN AMERICAN > 60
--- NOTE | 2017-12-17 05:01 | C.PDOC ---
History Of Present Illness 52yo male, pre-screened for detox from heroin. 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 He has no medical complaints. Time Seen by Provider: 12/16/17 23:22 Chief Complaint (Nursing): Substance Abuse History Per: Patient History/Exam Limitations: no limitations Modifying Factor(s): Narcotics Past Medical History Reviewed: Historical Data, Nursing Documentation, Vital Signs Vital Signs: Last Vital Signs Temp 99.6 F 12/17/17 06:25 Pulse 71 12/17/17 06:25 Resp 16 12/17/17 06:25 BP 119/80 12/17/17 06:25 Pulse Ox 95 12/17/17 06:25 - Medical History PMH: Bronchitis, HTN Denies: Diabetes, Hepatitis, HIV, Seizures, Sexually Transmitted Disease Surgical History: No Surg Hx - [facility] Procedures DETOXIFICATION SERVICES FOR SUBSTANCE ABUSE TREATMENT (10/19/17) INDIV PSYCHOTHERAPY FOR SUBSTANCE ABUSE TREATMENT, SUPPORT (10/19/17) INDIV PSYCHOTHERAPY FOR SUBSTANCE ABUSE, COGNITIV BEHAVIORAL (10/19/17) INDIV PSYCHOTHERAPY FOR SUBSTANCE ABUSE, PSYCHOEDUCATION (10/19/17) Family History: States: Unknown Family Hx - Social History Hx Tobacco Use: Yes Hx Alcohol Use: No Hx Substance Use: Yes (Snorts Heroin) - Immunization History Hx Tetanus Toxoid Vaccination: No Hx Influenza Vaccination: No Hx Pneumococcal Vaccination: No Review Of Systems Cardiovascular: Negative for: Chest Pain Respiratory: Negative for: Shortness of Breath Psych: Positive for: Other (detox for heroin use) Physical Exam - Physical Exam Appears: No Acute Distress Skin: Normal Color Head: Normacephalic Neck: Supple Chest: Symmetrical Cardiovascular: Rhythm Regular Respiratory: Normal Breath Sounds Extremity: Normal ROM Neurological/Psych: Oriented x3, Normal Speech, Normal Cognition ED Course And Treatment - Laboratory Results Result Diagrams: 12/17/17 00:31 12/17/17 00:31 O2 Sat by Pulse Oximetry: 99 (RA) Pulse Ox Interpretation: Normal Progress Note: Patient pre-screened for detox, pending medical clearance for detox admission. Pt is medically cleared for Detox admission Disposition - Disposition Disposition: HOSPITALIZED Disposition Time: 06:43 Condition: STABLE Forms: [email or web address] [facility] (Sami) - Clinical Impression Clinical Impression: Opioid use disorder, severe, dependence - PA / SMASH FIXER / Resident Statement MD/DO has reviewed & agrees with the documentation as recorded. - Scribe Statement The provider has reviewed the documentation as recorded by the Scribe (Becca Goldberg) Provider Scribe Attestation: All medical record entries made by the Scribe were at my direction and personally dictated by me. I have reviewed the chart and agree that the record accurately reflects my personal performance of the history, physical exam, medical decision making, and the department course for this patient. I have also personally directed, reviewed, and agree with the discharge instructions and disposition.
[2017-12-17 06:05] LABS: GRANULAR CAST 16 /lpf (0-1); SQUAMOUS EPITHIAL 11 /hpf (0-5); URINE BILIRUBIN NEGATIVE (NEGATIVE); URINE BLOOD NEGATIVE (NEGATIVE); URINE CLARITY Hazy (Clear); URINE COLOR Amber (YELLOW); URINE GLUCOSE (UA) NORMAL (Normal); URINE LEUKOCYTE ESTERASE TRACE Leu/uL (Negative); URINE NITRATE NEGATIVE (NEGATIVE); URINE PROTEIN 1+ mg/dL (NEGATIVE)
[2017-12-17 06:18] LABS: BARBITURATES, UR NEGATIVE (NEGATIVE); BENZODIAZEPINES, UR NEGATIVE (NEGATIVE); PHENCYCLIDINE, UR NEGATIVE (NEGATIVE)
[2017-12-17 06:31] LABS: OPIATES, UR POSITIVE (NEGATIVE)
[2017-12-17 08:32] VITALS: RESP 18
--- NOTE | 2017-12-17 08:36 | PCM.BM ---
<Sisi Tellez - Last Filed: 12/17/17 08:34> Treatment Plan Problems - Problems identified on initial assessmt Potential for opiate withdrawals Date Initiated: 12/17/17 Assessment reference: NA Status: Active Treatment assets and liabiliti Patient Assests: adapts well, cooperative, ADL independent, physically healthy, negotiates basic needs Patient Liabilities: substance abuse - Milieu Protocol Maintain good personal hygiene: daily Encourage regular showers, daily Remind patient to perform daily oral care, daily Assist patient to perform ADL's Conduct patient checks and document Observation sheet: Q15 minutes Maintain personal safety: every shift Educate patient to report safety concerns to staff, every shift Monitor environment for contraband/sharps Medication safety: Monitor for expected outcome, potential side effects: every shift, Assess barriers to learning: every shift, Assess readiness for medication education: every shift <Jonny Durbin - Last Filed: 12/17/17 17:39> - Diagnosis (1) Opioid use disorder, severe, dependence Status: Acute Interventions: 12/17/17 17:39 * Assess 7x/week regarding severity of withdrawal * Educate regarding risks, benefits, side effects and alternatives of medications * Use Motivational Interviewing for abstinence * Use CBT for relapse prevention * Medication management for withdrawal symptoms * Encourage medication assisted treatment *
[2017-12-17] MEDS ORDERED: Aluminum Hydroxide/Magnesium Hydroxide Susp (30 mL) PO PRN (10:14)
[2017-12-17] MEDS ORDERED: Buprenorphine Hydrochloride 2 mg SL ONE ×6 (10:19→18:00)
--- NOTE | 2017-12-17 13:31 | PCM.PSYCH ---
Initial Psychiatric Evaluation - Initial Psychiatric Evaluation Type of Admission: Voluntary Legal Status: Capacity Chief Complaint (in patient's own words): CC: "I want detox" History of Present Illness and Precipitating Events: HPI: 52 y.o. M unemployed, single with a 19 year old daughter presented to the ED wanting detox. He uses about a bundle of heroin since the age of 18. His longest sobriety was 3 years. He has been to detox 3-4 times and used suboxone which he tolerated well and prefers. He completed inpatient rehab at [facility] in 2001. He denies alcohol use, other drug use, and painkiller use. He has been smoking a pack of cigarettes a day and denies needing a patch. In addition to wanting detox he is complaining of left foot sores and a knot located on the left side of his neck that is painful. He is currently on probation due to child support issues and this is a great stressor. Detox Hx: 3-4 times Rehab Hx: [facility] 2001 Medical Hx: COPD, HTN Medications: none Psych Hx: depression, anxiety in the past Fam Hx: no psych, mother abused heroine Current Medications: Active Medications Generic Name Dose Route Start Last Admin Trade Name Freq PRN Reason Stop Dose Admin Al Hydrox/Mg Hydrox/Simethicone 30 ml 12/17/17 10:14 Maalox 30 Ml PO TID PRN Indigestion / Heartburn Clonidine HCl 0.1 mg 12/17/17 10:14 Catapres PO Q8 PRN COWS Score More or Equal to 5 Hydroxyzine HCl 50 mg 12/17/17 10:10 12/17/17 10:26 Atarax PO 50 mg Q6H PRN Administration Anxiety Ibuprofen 600 mg 12/17/17 10:10 Motrin Tab PO Q6H PRN Pain, moderate (4-7) Loperamide HCl 2 mg 12/17/17 10:14 Imodium PO Q8 PRN Diarrhea Ondansetron HCl 4 mg 12/17/17 10:14 Zofran Tab PO Q8 PRN Nausea/Vomiting Trazodone HCl 100 mg 12/17/17 10:10 Desyrel PO HS PRN Insomnia Past Psychiatric History - Past Psychiatric History Previous Treatment History: None Pertinent Medical Hx (Current Medical&Sleep Prob, Allergies): Allergies Allergy/AdvReac Type Severity Reaction Status Date / Time No Known Allergies Allergy Verified 12/16/17 23:11 No Known Home Med 12/16/17 Review of Systems - Constitutional Constitutional: absent: Chills, Sweats, Weakness - Respiratory Respiratory: Cough, Wheezing - Musculoskeletal Musculoskeletal: Abnormal Gait, Neck Pain Additional comments: left neck "knot" - Integumentary Integumentary: Sores Additional comments: left ankle lesion - Neurological Neurological: Abnormal Gait - Psychiatric Psychiatric: Abnormal Sleep Pattern, Anxiety, Depression. absent: Irritability Mental Status Examination - Personal Presentation Personal Presentation: Looks older than stated age - Affect Affect: Broad - Motor Activity Motor Activity: Calm - Reliability in Providing Information Reliability in Providing Information: Good - Speech Speech: Organized - Mood Mood: Depressed, Anxious - Formal Thought Process Formal Thought Process: No Impairment - Obsessions/Compulsions Obsessions: No Compulsions: No - Cognitive Functions Orientation: Person, Place, Situation, Time Sensorium: Alert Attention/Concentration: Attentive Abstract Thinking: [place] Estimate of Intelligence: Average Judgement: Imparied, as evidence by: Poor judgement Memory: Recent intact, as evidence by: Ability to recall events of the day - Risk Risk: Seizure, Withdrawal, Falls, Diminished functioning - Strength & Assets Inventory Strength & Assets Inventory: Cooperative - Limitations Limitations: Living alone, Other Additional comments: legal and financial issues, unemployed DSM 5 DX - DSM 5 DSM 5 Diagnosis: Opioid Withdrawal Opioid Use d/o - severe Anxiety d/o - unspecified Tobacco use d/o r/o personality d/o unspecified - Recommended/Plan of Treatment Treatment Recommendations and Plan of Treatment: Subutex detox As needed medications All risks, benefits and alternatives of the meds discussed, and the pt agreed and understood. Attend groups and activities Supportive therapy and psychoeducation [place] for abstinence CBT for relapse prevention Encourage MAT Refer to rehab or IOP, and self-help groups Smoking cessation with [place] - denies need for a patch 34 min Projected ELOS: 4 days Prognosis: good with treatment Discharge Plan and Discharge Criteria: rehab and MAT - Smoking Cessation Smoking Cessation Initiated: Yes
[2017-12-18] MEDS: Buprenorphine Hydrochloride 2 mg SL SCH (09:35)
--- NOTE | 2017-12-18 12:36 | RAD ---
PROCEDURE: Left Foot Radiographs. HISTORY: left foot pain COMPARISON: None. FINDINGS: BONES: Normal. No fracture. JOINTS: 1st metatarsal joint space narrowing -osteoarthrosis SOFT TISSUES: Normal. OTHER FINDINGS: None. IMPRESSION: 1st metatarsal joint space narrowing -osteoarthrosis. No fracture
--- NOTE | 2017-12-18 14:13 | PCM.PYCHPN ---
Psychiatric Progress Note - Psychiatric Progress Note Patient seen today, length of contact: 16 minutes Patient Chief Complaint: "Im not doing that well" Problems Identified/Issues Discussed: The pt is seen, chart reviewed, case discussed with staff. The pt is compliant with medications and reports no side-effects. Symptoms improving and patient needs more time to stabilize. The patient is complaining that he did not sleep well again. The patient also complained of a new onset of chest pain that started yesterday evening and he cannot describe it. He did not tell any staff member about this chest pain until late this morning and an EKG was performed and was normal. He is still complaining of left foot pain and an xray this morning showed the first metatarsal joint space narrowing suggestive of osteoarthritis. After care discussed, support and psychoeducation given. Medication Change: Yes (detox changes daily) Medical Record Reviewed: Yes Consults ordered or reviewed: Podiatry Mental Status Examination - Cognitive Function Orientation: Person, Place, Situation, Time Memory: Intact Attention: Poor Concentration: Poor Association: WNL Fund of Knowledge: WNL Decription of patient's judgement and insights: fair - Mood Mood: Depressed, Anxious - Affect Affect: Constricted - Speech Speech: Appropriate - Language Language: Word Retrieval - Formal Thought Process Formal Thought Process: No Impairment - Suicidal Ideation Suicidal Ideation: No - Homicidal Ideation Homicidal Ideation: No Goal/Treatment Plan - Goal/Treatment Plan Need for Continued Stay: Remain at risks for inpatient hospitalization, Discharge may exacerbated symptoms Progress Toward Problem(s) and Goals/Treatment Plan: Subutex detox As needed medications All risks, benefits and alternatives of the meds discussed, and the pt agreed and understood. Attend groups and activities Supportive therapy and psychoeducation [place] for abstinence CBT for relapse prevention Encourage MAT Refer to rehab or IOP, and self-help groups Smoking cessation with [place] - denies need for a patch Estimated Date of D/C: 12/21/17 - Smoking Cessation Smoking Cessation Initiated: No Reason for not providing: Denies need for patch
--- NOTE | 2017-12-18 19:49 | CP.PCM.CON ---
History of Present Illness - History of Present Illness History of Present Illness: Podiatry Consult Note- Dr. Reyes. 52 year old male pt seen at bedside with attending, Dr. Reyes present. Pt is seen in detox to aid with heroin detoxification. Pt has left foot pedal complaint of heel bone pain which presented 2 months ago and progressed to current pain level, peak of which is a 5/10. Pt reports primary medical doctor, Dr. Anthony, in [place] advised and referred pt to immigration law specialist, though pt never followed up for initial evaluation. Pt reports pain interferes with his ability to walk. Pt denies and recent or memorable trauma to the area of concern. Pt denies overnight n/v/f/c/cp/sob/dizziness. Past Patient History - Infectious Disease Hx of Infectious Diseases: None - Past Social History Smoking Status: Light Smoker < 10 Cigarettes Daily - CARDIAC Hx Hypertension: Yes - PULMONARY Hx Bronchitis: Yes Hx Chronic Obstructive Pulmonary Disease (COPD): Yes - NEUROLOGICAL Hx Seizures: No - HEMATOLOGICAL/ONCOLOGICAL Hx Human Immunodeficiency Virus (HIV): No - MUSCULOSKELETAL/RHEUMATOLOGICAL Hx Back Pain: Yes Hx Falls: No - GENITOURINARY/GYNECOLOGICAL Hx Sexually Transmitted Disorders: No - PSYCHIATRIC Hx Substance Use: Yes - SURGICAL HISTORY Hx Surgeries: No - ANESTHESIA Hx Anesthesia: No Meds Allergies/Adverse Reactions: Allergies Allergy/AdvReac Type Severity Reaction Status Date / Time No Known Allergies Allergy Verified 12/16/17 23:11 - Medications Medications: Current Medications Al Hydrox/Mg Hydrox/Simethicone (Maalox 30 Ml) 30 ml PO TID PRN PRN Reason: Indigestion / Heartburn Buprenorphine HCl (Subutex) 6 mg SL DAILY [facility] PRN Reason: Taper Stop: 12/22/17 09:59 Last Admin: 12/18/17 09:35 Dose: 6 mg Clonidine HCl (Catapres) 0.1 mg PO Q8 PRN PRN Reason: COWS Score More or Equal to 5 Hydroxyzine HCl (Atarax) 50 mg PO Q6H PRN PRN Reason: Anxiety Last Admin: 12/17/17 10:26 Dose: 50 mg Ibuprofen (Motrin Tab) 600 mg PO Q6H PRN PRN Reason: Pain, moderate (4-7) Loperamide HCl (Imodium) 2 mg PO Q8 PRN PRN Reason: Diarrhea Ondansetron HCl (Zofran Tab) 4 mg PO Q8 PRN PRN Reason: Nausea/Vomiting Trazodone HCl (Desyrel) 100 mg PO HS PRN PRN Reason: Insomnia Physical Exam - Constitutional Appears: Well, Non-toxic, No Acute Distress - Extremities Exam Additional comments: Left lower extremity focused. Pt present with noted antalgic gait, with limited heel contact of left foot to ground. MUSC: Tenderness to palation along lateral posterior-superieo tubercle along achilles tendon insertion. No gross daphne prominences palpation. No insertional achilles tendon tenderness. No gross deformities noted. Pedal muscle strength in leg and foot graded 5/5 in 4 major muscle groups. VASC: DP and PT pulses graded 1/4. No edema noted. Temperature runs warm to cool , proximal leg to distal foot, within normal limits. DERM: Diffuse xerosis noted. retro calcaneal hyperkeratosis noted with mild fissuring. No open wounds, lesions, not macerations noted. Nails are thickened, with hallux demonstrating splintering. Skin turgor is supple within normal limits. NERUO: Protective sensation grossly intact. - Neurological Exam Neurological exam: Alert, Oriented x3 - Psychiatric Exam Psychiatric exam: Normal Affect, Normal Mood Results - Vital Signs Recent Vital Signs: Last Vital Signs Temp 98 F 12/18/17 19:03 Pulse 67 12/18/17 19:03 Resp 18 12/18/17 19:03 BP 134/80 12/18/17 19:03 Pulse Ox 95 12/18/17 19:03 - Labs Result Diagrams: 12/17/17 00:31 12/17/17 00:31 Assessment & Plan - Assessment and Plan (Free Text) Assessment: 52 year old male with left foot retro-calcaneal painful exostosis. Plan: Pt seen and evaluated with attending, Dr. Reyes. Chart, labs, and vitals reviewed. 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 Pt to remain weightbearing as tolerated. Podiatry will follow patient while inhouse. Thank you for allowing podiatry service to participate in the care of this patient. - Date & Time Date: 12/18/17 Time: 09:10
[2017-12-19] MEDS: Buprenorphine Hydrochloride 2 mg SL SCH (09:22)
[2017-12-19] MEDS: Lidocaine 5% Patch TD SCH (11:10)
--- NOTE | 2017-12-19 13:49 | PCM.PYCHPN ---
Psychiatric Progress Note - Psychiatric Progress Note Patient seen today, length of contact: 17 minutes Patient Chief Complaint: "I didnt sleep well" Problems Identified/Issues Discussed: The pt is seen, chart reviewed, case discussed with staff. The pt is compliant with medications and reports no side-effects. Although the patient is complaining of lack of sleep. Symptoms improving and patient needs more time to stabilize. Patient complained of hand numbness and states this has been an ongoing issue. He is detoxing okay and has minimal symptoms. Medication Change: Yes (detox changes daily) Medical Record Reviewed: Yes Mental Status Examination - Cognitive Function Orientation: Person, Place, Situation, Time Memory: Intact Attention: Poor Concentration: Poor Association: WNL Fund of Knowledge: WNL Decription of patient's judgement and insights: fair - Mood Mood: Depressed, Anxious - Affect Affect: Constricted - Speech Speech: Appropriate - Language Language: Word Retrieval - Formal Thought Process Formal Thought Process: No Impairment - Suicidal Ideation Suicidal Ideation: No - Homicidal Ideation Homicidal Ideation: No Goal/Treatment Plan - Goal/Treatment Plan Need for Continued Stay: Remain at risks for inpatient hospitalization, Discharge may exacerbated symptoms Progress Toward Problem(s) and Goals/Treatment Plan: Subutex detox As needed medications All risks, benefits and alternatives of the meds discussed, and the pt agreed and understood. Attend groups and activities Supportive therapy and psychoeducation [place] for abstinence CBT for relapse prevention Encourage MAT Refer to rehab or IOP, and self-help groups Smoking cessation with [place] - denies need for a patch Estimated Date of D/C: 12/20/17 - Smoking Cessation Smoking Cessation Initiated: Yes
--- NOTE | 2017-12-19 19:39 | CP.PCM.PN ---
Subjective - Date & Time of Evaluation Date of Evaluation: 12/19/17 Time of Evaluation: 10:50 - Subjective Subjective: Podiatry Consult Note- Dr. Reyes. 52 year old male pt seen at bedside for left heel pain which effects his walking. Pt reports continued pain to the area of concern. Pt denies overnight n/v/f/c/cp/sob/dizziness. Objective - Vital Signs/Intake and Output Vital Signs (last 24 hours): Temp Pulse Resp BP Pulse Ox 98.6 F 76 18 134/79 94 L 12/19/17 16:15 12/19/17 16:15 12/19/17 16:15 12/19/17 16:15 12/19/17 16:15 - Medications Medications: Current Medications Al Hydrox/Mg Hydrox/Simethicone (Maalox 30 Ml) 30 ml PO TID PRN PRN Reason: Indigestion / Heartburn Buprenorphine HCl (Subutex) 4 mg SL DAILY [facility] PRN Reason: Taper Stop: 12/22/17 09:59 Last Admin: 12/19/17 09:22 Dose: 4 mg Clonidine HCl (Catapres) 0.1 mg PO Q8 PRN PRN Reason: COWS Score More or Equal to 5 Hydroxyzine HCl (Atarax) 50 mg PO Q6H PRN PRN Reason: Anxiety Last Admin: 12/18/17 21:30 Dose: 50 mg Ibuprofen (Motrin Tab) 600 mg PO Q6H PRN PRN Reason: Pain, moderate (4-7) Last Admin: 12/19/17 18:43 Dose: 600 mg Lidocaine (Lidoderm) 1 ea TD DAILY [facility] Last Admin: 12/19/17 11:10 Dose: 1 ea Loperamide HCl (Imodium) 2 mg PO Q8 PRN PRN Reason: Diarrhea Ondansetron HCl (Zofran Tab) 4 mg PO Q8 PRN PRN Reason: Nausea/Vomiting Trazodone HCl (Desyrel) 100 mg PO HS PRN PRN Reason: Insomnia Last Admin: 12/18/17 21:30 Dose: 100 mg - Labs Labs: 12/17/17 00:31 12/17/17 00:31 - Constitutional Appears: Well, Non-toxic, No Acute Distress - Extremities Exam Additional comments: Left lower extremity focused. MUSC: Tenderness to palation along lateral posterior-superieo tubercle along achilles tendon insertion. No gross daphne prominences palpation. No insertional achilles tendon tenderness. No gross deformities noted. Pedal muscle strength in leg and foot graded 5/5 in 4 major muscle groups. VASC: DP and PT pulses graded 1/4. No edema noted. Temperature runs warm to cool , proximal leg to distal foot, within normal limits. DERM: Diffuse xerosis noted. retro calcaneal hyperkeratosis noted with mild fissuring. No open wounds, lesions, not macerations noted. Nails are thickened, with hallux demonstrating splintering. Skin turgor is supple within normal limits. NERUO: Protective sensation grossly intact. - Neurological Exam Neurological Exam: Alert, Awake, Oriented x3 - Psychiatric Exam Psychiatric exam: Normal Affect, Normal Mood Assessment and Plan - Assessment and Plan (Free Text) Assessment: 52 year old male with left foot retro-calcaneal painful exostosis. Plan: Pt seen and evaluated. Discussed with attending, Dr. Reyes. Chart, labs, and vitals reviewed. 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 Pt to remain weightbearing as tolerated. Pain control prescribed: Local Lidocaine 5% TD patch to area of concern. Ibuprofen 600mg BID Podiatry will follow patient while inhouse. Pt will follow up with Dr. Reyes in [facility].
--- NOTE | 2017-12-20 08:47 | PCM.PYCHDC ---
Mental Status Examination - Mental Status Examination Orientation: Person, Place, Situation, Time Memory: Intact Mood: Neutral Affect: Broad Speech: Appropriate Attention: WNL Concentration: WNL Language: Word Retrieval Association: WNL Fund of Knowledge: WNL Formal Thought Process: No Impairment Description of patient's judgement and insight: good Suicidal Ideation: No Current Homicidal Ideation?: No Discharge Summary - Discharge Note Reason for Hospitalization: Opioid withdrawal Consultations:: List each consultation separately and include: 1. Reason for request. 2. Findings. 3. Follow-up Consultations: Podiatry Summary of Hospital Course include:: 1. Description of specific treatment plan utilized for patients during their course of treatmen. 2. Summarize the time- course for resolution of acute symptoms and/or regressed behaviors. 3. Describe issues identified and worked on during hospitalization. 4. Describe medication utilized. 5. Describe medical problems identified and treated. 6. Reassessment of suicide risk Summary of Hospital Course: HPI: 52 y.o. M unemployed, single with a 19 year old daughter presented to the ED wanting detox. He uses about a bundle of heroin since the age of 18. His longest sobriety was 3 years. He has been to detox 3-4 times and used suboxone which he tolerated well and prefers. He completed inpatient rehab at [facility] in 2001. He denies alcohol use, other drug use, and painkiller use. He has been smoking a pack of cigarettes a day and denies needing a patch. In addition to wanting detox he is complaining of left foot sores and a knot located on the left side of his neck that is painful. He is currently on probation due to child support issues and this is a great stressor. Detox Hx: 3-4 times Rehab Hx: [facility] 2001 Medical Hx: COPD, HTN Medications: none Psych Hx: depression, anxiety in the past Fam Hx: no psych, mother abused heroin Hospital Course: The pt was admitted and started on treatment with psychotherapy, support, psychoeducation and medications. AL and CBT used. The pt attended groups and activities, as well as milieu therapy. All the risks and benefits of medications are discussed and the patient understood and agreed. The pt improved with the treatments provided. After care discussed with the patient. The patient is planning to go to [facility] in [place]. He is in good spirits today and very optimistic. He will be going home with a sole insert recommended by Podiatry. - Diagnosis (1) Opioid use disorder, severe, dependence Status: Acute - Final Diagnosis (DSM 5) Condition upon Discharge: STABLE Disposition: HOME/ ROUTINE Follow-up Treatment Plan: Continue below medications after discharge. Follow after care plan as discussed. Use relapse prevention skills Return to ER or call 911 if suicidal, homicidal or symptoms relapse. Stay away from stress, alcohol and drugs. See primary doctor regularly and get labs. Prescriptions/Medication Reconciliation: hydrOXYzine HCl [Atarax] 50 mg PO DAILY PRN #30 tab PRN Reason: Anxiety Lidocaine 5% [Lidoderm] 1 ea TD DAILY #7 patch traZODone [Desyrel] 100 mg PO HS PRN #30 tab PRN Reason: Insomnia
[2017-12-20 08:48] VITALS: BP 145/95; PULSE 65; TEMP 97.5; O2SAT 95
[2017-12-20] MEDS: Lidocaine 5% Patch TD SCH (09:02)
[2017-12-20] MEDS: Buprenorphine Hydrochloride 2 mg SL SCH (09:27)
--- NOTE | 2017-12-21 23:24 | CARD ---
APPROVED REPORT EKG Measurement Heart [id number] ID [id number] <Conclusion> Normal sinus rhythm Anterolateral infarct, age undetermined T wave abnormality, consider inferior ischemia Abnormal ECG
== END 2017-12-20 09:27 | disposition home or self-care (01) | DRG 744 ==
LOC: C.ER 21:14 → SUPCPDRO 21:14 → C.7D 12-17 06:41
PROVIDERS: ADMIT Psychiatry & Neurology Psychiatry; ATTEND Psychiatry & Neurology Psychiatry
PROC: HZ2ZZZZ Detoxification Services for Substance Abuse Treatment (ICD-10-PCS; principal; 2017-12-17)
PROC: GZ56ZZZ Individual Psychotherapy, Supportive (ICD-10-PCS; 2017-12-17)
DX: F11.23 Opioid dependence with withdrawal (principal); J44.9 Chronic obstructive pulmonary disease, unspecified; F17.210 Nicotine dependence, cigarettes, uncomplicated; F41.9 Anxiety disorder, unspecified; I10 Essential (primary) hypertension; Z65.3 Problems related to other legal circumstances

== ENCOUNTER 2018-03-06 16:58 | Inpatient (IN) | payer MEDICAID, OTHER ==
[2018-03-06 16:58] VITALS: BMI 27.3
[2018-03-06 17:46] LABS: BASO # 0.1 K/uL (0.0-0.2); EOS # 0.1 K/uL (0.0-0.7); EOS % 2.1 % (0.0-4.0); HEMOGLOBIN 16.3 g/dL (12.0-18.0); LYMPH # 2.7 K/uL (1.0-4.3); LYMPH % 38.3 % (20.0-40.0); MEAN CELL VOLUME 90.5 fL (80.0-94.0); MEAN CORPUSCULAR HEMOGLOBIN 30.2 pg (27.0-31.0); MEAN CORPUSCULAR HGB CONC 33.4 g/dL (33.0-37.0); MEAN PLATELET VOLUME 9.5 fL (7.2-11.7); MONO # 0.5 K/uL (0.0-0.8); MONO % 7.1 % (0.0-10.0); NEUT # 3.6 K/uL (1.8-7.0); NEUT % 51.5 % (50.0-75.0); NRBC % 0.1 % (0.0-2.0); RBC 5.39 Mil/uL (4.40-5.90); RED CELL DISTRIBUTION WIDTH 14.4 % (11.5-14.5)
[2018-03-06 18:01] LABS: ALB/GLOB RATIO 1.2 (1.0-2.1); ALBUMIN 4.6 g/dL (3.5-5.0); ALT/SGPT 14 U/L (21-72); AST/SGOT 26 U/L (17-59); BLOOD UREA NITROGEN 16 mg/dL (9-20); CALCIUM 9.2 mg/dl (8.6-10.4); GFR AFRICAN-AMERICAN > 60; GFR NON-AFRICAN AMERICAN > 60
[2018-03-06 18:03] LABS: BARBITURATES, UR NEGATIVE (NEGATIVE); BENZODIAZEPINES, UR NEGATIVE (NEGATIVE); PHENCYCLIDINE, UR NEGATIVE (NEGATIVE)
[2018-03-06 18:05] LABS: OPIATES, UR POSITIVE (NEGATIVE)
[2018-03-06 18:09] LABS: SQUAMOUS EPITHIAL 14 /hpf (0-5); URINE BACTERIA RARE (<OCC); URINE BILIRUBIN NEGATIVE (NEGATIVE); URINE BLOOD NEGATIVE (NEGATIVE); URINE CLARITY Hazy (Clear); URINE COLOR Yellow (YELLOW); URINE GLUCOSE (UA) NORMAL (Normal); URINE LEUKOCYTE ESTERASE NEG Leu/uL (Negative); URINE PROTEIN NEGATIVE (NEGATIVE); URINE UROBILINOGEN NORMAL mg/dL (0.2-1.0)
--- NOTE | 2018-03-06 18:22 | C.PDOC ---
History Of Present Illness 52-year-old male presents to the emergency department requesting detox from Heroin, last use was this morning. Patient denies any SI/HI, or physical complaints at this time. Time Seen by Provider: 03/06/18 17:11 Chief Complaint (Nursing): Substance Abuse History Per: Patient History/Exam Limitations: no limitations Onset/Duration Of Symptoms: Persistent Modifying Factor(s): Narcotics Severity: Moderate Associated Symptoms: denies: Suicidal Thoughts Past Medical History Reviewed: Historical Data, Nursing Documentation, Vital Signs Vital Signs: Last Vital Signs Temp 98.1 F 03/06/18 17:06 Pulse 67 03/06/18 17:06 Resp 18 03/06/18 17:06 BP 127/80 03/06/18 17:06 Pulse Ox 97 03/06/18 18:57 - Medical History PMH: Anxiety, Bronchitis, COPD, Depression, HTN Surgical History: No Surg Hx - [facility] DETOXIFICATION SERVICES FOR SUBSTANCE ABUSE TREATMENT (12/17/17) INDIV PSYCHOTHERAPY FOR SUBSTANCE ABUSE TREATMENT, SUPPORT (10/19/17) INDIV PSYCHOTHERAPY FOR SUBSTANCE ABUSE, COGNITIV BEHAVIORAL (10/19/17) INDIV PSYCHOTHERAPY FOR SUBSTANCE ABUSE, PSYCHOEDUCATION (10/19/17) INDIVIDUAL PSYCHOTHERAPY, SUPPORTIVE (12/17/17) Family History: States: No Known Family Hx - Social History Hx Tobacco Use: Yes Hx Alcohol Use: No Hx Substance Use: Yes - Immunization History Hx Tetanus Toxoid Vaccination: No Hx Influenza Vaccination: No Hx Pneumococcal Vaccination: No Review Of Systems Constitutional: Negative for: Fever Cardiovascular: Negative for: Chest Pain, Palpitations Respiratory: Negative for: Shortness of Breath Gastrointestinal: Negative for: Nausea, Vomiting, Abdominal Pain, Diarrhea Genitourinary: Negative for: Dysuria Psych: Positive for: Other (heroin dependence ). Negative for: Suicidal ideation, Withdrawal Physical Exam - Physical Exam Appears: Well, Non-toxic, No Acute Distress Skin: Normal Color, Warm, Dry, No Diaphoretic, No Rash Head: Normacephalic Eye(s): bilateral: Normal Inspection Oral Mucosa: Moist Neck: Normal, Normal ROM Cardiovascular: Rhythm Regular Respiratory: Normal Breath Sounds, No Rales, No Rhonchi, No Wheezing Extremity: Normal ROM, No Deformity, No Swelling Extremity: Bilateral: Atraumatic Neurological/Psych: Oriented x3 Gait: Steady ED Course And Treatment - Laboratory Results Result Diagrams: 03/06/18 17:39 03/06/18 17:39 O2 Sat by Pulse Oximetry: 97 (RA) Pulse Ox Interpretation: Normal Progress Note: Bloodwork, UA, UDS ordered and reviewed. 6:4o0pm- Patient medically cleared. Pending crisis. Disposition - Disposition Disposition Time: 19:00 Condition: STABLE Forms: [facility] (Ukrainian) - Clinical Impression Clinical Impression: Heroin dependence - Scribe Statement The provider has reviewed the documentation as recorded by the Scribe (Selvin Duong) All medical record entries made by the Scribe were at my direction and personally dictated by me. I have reviewed the chart and agree that the record accurately reflects my personal performance of the history, physical exam, medical decision making, and the department course for this patient. I have also personally directed, reviewed, and agree with the discharge instructions and disposition. Physician Patient Turnover Patient Signed Over To: Ruby Wynn Handoff Comments: pending crisis
--- NOTE | 2018-03-06 19:27 | PCM.BM ---
<Catalina Dsouza - Last Filed: 03/06/18 19:26> Treatment Plan Problems - Problems identified on initial assessmt potiential for opiate withdrawal Date Initiated: 03/06/18 Time Initiated: 19:26 Assessment reference: NA Status: Active Treatment assets and liabiliti Patient Assests: adapts well, cooperative, ADL independent, physically healthy, negotiates basic needs, cognitively intact Patient Liabilities: substance abuse, medical problems - Milieu Protocol Maintain good personal hygiene: daily Encourage regular showers, daily Remind patient to perform daily oral care, daily Assist patient to perform ADL's Maintain personal safety: every shift Educate patient to report safety concerns to staff, every shift Monitor environment for contraband/sharps Medication safety: Monitor for expected outcome, potential side effects: every shift, Assess barriers to learning: every shift, Assess readiness for medication education: every shift <Jonny Durbin - Last Filed: 03/09/18 10:42> - Diagnosis (1) Opioid use disorder, severe, dependence Status: Acute Interventions: 03/09/18 10:42 * Assess 7x/week regarding severity of withdrawal * Educate regarding risks, benefits, side effects and alternatives of medications * Use Motivational Interviewing for abstinence * Use CBT for relapse prevention * Medication management for withdrawal symptoms * Encourage medication assisted treatment *
[2018-03-06] MEDS: Albuterol-Ipratrop 3 mg / 0.5 (3 ml) UD INH PRN (20:52)
[2018-03-07] MEDS: Albuterol-Ipratrop 3 mg / 0.5 (3 ml) UD INH PRN ×2 (08:54→17:06)
[2018-03-07] MEDS ORDERED: Buprenorphine Hydrochloride 2 mg SL ONE ×5 (10:32→14:30)
[2018-03-07] MEDS ORDERED: Aluminum Hydroxide/Magnesium Hydroxide Susp (30 mL) PO PRN (10:35)
--- NOTE | 2018-03-07 12:38 | PCM.PSYCH ---
Initial Psychiatric Evaluation - Initial Psychiatric Evaluation Type of Admission: Voluntary Legal Status: Capacity Chief Complaint (in patient's own words): "I need detox and go home" History of Present Illness and Precipitating Events: He is seen, chart reviewed and case discussed - he is known from previous admissions. 52 y.o. AAM unemployed, single with a 19-year old daughter presented to the ED wanting detox. He uses about a bundle of heroin since the age of 18 but lately "7-8 bags." He went to Methadone clinic in but did not likel it and asked to be tapered of. He in fact used while on methadone. His longest sobriety was 3 years. He has been to detox 3-4 times and used suboxone which he tolerated well and prefers. He completed inpatient rehab at [facility] in 2001. He went to [facility], too. He denies alcohol use, other drug use, and painkiller use. He has been smoking a pack of cigarettes a day. He is currently on probation due to child support issues. Detox Hx: 3-4 times Rehab Hx: [facility] 2001 Medical Hx: COPD, HTN Medications: none Psych Hx: depression, anxiety in the past Fam Hx: no psych, mother abused heroin Current Medications: Active Medications Generic Name Dose Route Start Last Admin Trade Name Freq PRN Reason Stop Dose Admin Al Hydrox/Mg Hydrox/Simethicone 30 ml 03/07/18 10:35 Maalox 30 Ml PO TID PRN Indigestion / Heartburn Albuterol/Ipratropium 3 ml 03/06/18 20:29 03/07/18 08:54 Duoneb 3 Mg/0.5 Mg (3 Ml) Ud INH 3 ml RQ6 PRN Administration sob Buprenorphine HCl 6 mg 03/07/18 13:00 Subutex SL 03/07/18 13:01 ONCE ONE Clonidine HCl 0.1 mg 03/07/18 10:35 Catapres PO Q8 PRN COWS Score More or Equal to 5 Loperamide HCl 2 mg 03/07/18 10:35 Imodium PO Q8 PRN Diarrhea Ondansetron HCl 4 mg 03/07/18 10:35 Zofran Tab PO Q8 PRN Nausea/Vomiting Trazodone HCl 100 mg 03/06/18 21:58 Desyrel PO HS PRN insomnia Past Psychiatric History - Past Psychiatric History Previous Treatment History: None Pertinent Medical Hx (Current Medical&Sleep Prob, Allergies): Allergies Allergy/AdvReac Type Severity Reaction Status Date / Time No Known Allergies Allergy Verified 03/06/18 17:08 No Known Home Med 03/06/18 Review of Systems - Psychiatric Psychiatric: Abnormal Sleep Pattern, Anxiety, Difficulty Concentrating, Irritability. absent: Hallucinations, Homicidal Ideation, Suicidal Ideation Mental Status Examination - Personal Presentation Personal Presentation: Looks older than stated age - Affect Affect: Constricted - Motor Activity Motor Activity: Calm - Reliability in Providing Information Reliability in Providing Information: Good - Speech Speech: Organized - Mood Mood: Anxious - Formal Thought Process Formal Thought Process: No Impairment - Cognitive Functions Orientation: Person, Place, Situation, Time Sensorium: Alert Attention/Concentration: Easily distracted Abstract Thinking: [place] Estimate of Intelligence: Average Judgement: Imparied, as evidence by: Poor judgement (refuses proper after care: "I'll just move to [place] where my family lives"), Intact, as evidence by: Insight regarding need for hospitalization Memory: Recent intact, as evidence by: Ability to recall events of the day, Remote impaired as evidenced by: Inability to recall historical events DSM 5 DX - DSM 5 DSM 5 Diagnosis: Opioid Withdrawal Opioid Use d/o - severe Anxiety d/o - unspecified Tobacco use d/o r/o personality d/o unspecified - Recommended/Plan of Treatment Treatment Recommendations and Plan of Treatment: Subutex detox As needed medications All risks, benefits and alternatives of the meds discussed, and the pt agreed and understood. Attend groups and activities Supportive therapy and psychoeducation [place] for abstinence CBT for relapse prevention Encourage MAT Refer to rehab or IOP, and self-help groups Smoking cessation with [place] - denies need for a patch 34 min Projected ELOS: 5-6 days Prognosis: fair w/o MAT or rehab - Smoking Cessation Smoking Cessation Initiated: Yes
--- NOTE | 2018-03-07 13:44 | PCM.PYCHPN ---
Psychiatric Progress Note - Psychiatric Progress Note Patient seen today, length of contact: 16 min Patient Chief Complaint: "I have pain" Problems Identified/Issues Discussed: The pt is seen, chart reviewed, case discussed with staff. The pt is compliant with medications and reports no side-effects. Symptoms are improving but needs more time to stabilize. After care discussed, support and psychoeducation given. Medication Change: Yes (detox changes daily) Medical Record Reviewed: Yes Mental Status Examination - Cognitive Function Orientation: Person, Place, Situation, Time Memory: Intact Attention: Poor Concentration: Poor Association: WNL Fund of Knowledge: WNL - Mood Mood: Anxious - Affect Affect: Constricted - Speech Speech: Appropriate - Formal Thought Process Formal Thought Process: No Impairment - Suicidal Ideation Suicidal Ideation: No - Homicidal Ideation Homicidal Ideation: No Goal/Treatment Plan - Goal/Treatment Plan Need for Continued Stay: Discharge may exacerbated symptoms, Severe functional impairment Progress Toward Problem(s) and Goals/Treatment Plan: Subutex detox As needed medications All risks, benefits and alternatives of the meds discussed, and the pt agreed and understood. Attend groups and activities Supportive therapy and psychoeducation AL for abstinence CBT for relapse prevention Encourage MAT Refer to rehab or IOP, and self-help groups Smoking cessation with AL - denies need for a patch
[2018-03-08] MEDS: Buprenorphine Hydrochloride 2 mg SL SCH (09:39)
[2018-03-08] MEDS: Albuterol-Ipratrop 3 mg / 0.5 (3 ml) UD INH PRN (19:01)
--- NOTE | 2018-03-09 00:01 | PCM.PYCHPN ---
Psychiatric Progress Note - Psychiatric Progress Note Patient seen today, length of contact: 15 min Patient Chief Complaint: "I feel better, I still have pain, I have arthritis" Medication Change: Yes (detox changes daily) Medical Record Reviewed: Yes Mental Status Examination - Cognitive Function Orientation: Person, Place, Situation, Time Memory: Impaired Attention: WNL Concentration: Poor Association: WNL Fund of Knowledge: WNL - Mood Mood: Anxious - Affect Affect: Constricted - Speech Speech: Appropriate - Formal Thought Process Formal Thought Process: No Impairment - Suicidal Ideation Suicidal Ideation: No - Homicidal Ideation Homicidal Ideation: No Goal/Treatment Plan - Goal/Treatment Plan Need for Continued Stay: Discharge may exacerbated symptoms, Severe functional impairment Progress Toward Problem(s) and Goals/Treatment Plan: Subutex detox As needed medications All risks, benefits and alternatives of the meds discussed, and the pt agreed and understood. Attend groups and activities Supportive therapy and psychoeducation [place] for abstinence CBT for relapse prevention Encourage MAT Refer to rehab or IOP, and self-help groups Smoking cessation with HI - denies need for a patch
[2018-03-09] MEDS: Albuterol-Ipratrop 3 mg / 0.5 (3 ml) UD INH PRN (05:30)
[2018-03-09] MEDS: Buprenorphine Hydrochloride 2 mg SL SCH (09:21)
--- NOTE | 2018-03-09 23:41 | PCM.PYCHPN ---
Psychiatric Progress Note - Psychiatric Progress Note Patient seen today, length of contact: 15 min Patient Chief Complaint: I'm feeling better. Problems Identified/Issues Discussed: Patient seen, chart reviewed, case discussed with staff. Issues related to illness and treatment were discussed with the patient. Reported compliant with treatment with no adverse affects. Tolerating treatment very well. Reported feeling better. Aftercare discussed with the patient. At the time of evaluation, patient was awake alert oriented 3, had no delusions , no auditory or visual hallucinations, no suicidal ideations or homicidal ideations. Medical Problems: COPD Hypertension Diagnostic Results: Reviewed DSM 5 Symptoms Update: Improving with treatment Medication Change: No Medical Record Reviewed: Yes Mental Status Examination - Cognitive Function Orientation: Person, Place, Situation, Time Memory: Intact Attention: WNL Concentration: WNL Association: WNL Fund of Knowledge: [facility] Decription of patient's judgement and insights: Fair - Mood Mood: Anxious - Affect Affect: Other (Appropriate) - Speech Speech: Appropriate - Formal Thought Process Formal Thought Process: No Impairment Psychotic Thoughts and Behaviors: None - Suicidal Ideation Suicidal Ideation: No - Homicidal Ideation Homicidal Ideation: No Goal/Treatment Plan - Goal/Treatment Plan Need for Continued Stay: Remain at risks for inpatient hospitalization, Discharge may exacerbated symptoms, Severe functional impairment Progress Toward Problem(s) and Goals/Treatment Plan: Improving with treatment. Patient education. Supportive therapy. CBT for relapse prevention. [place] for abstinence. Estimated Date of D/C: 03/11/18 - Smoking Cessation Smoking Cessation Initiated: Yes
[2018-03-10] MEDS: Buprenorphine Hydrochloride 2 mg SL SCH (09:49)
--- NOTE | 2018-03-10 15:31 | PCM.PYCHPN ---
Psychiatric Progress Note - Psychiatric Progress Note Patient seen today, length of contact: 15 min Patient Chief Complaint: I'm feeling much better. Problems Identified/Issues Discussed: Patient seen, chart reviewed, case discussed with staff. Issues related to illness and treatment were discussed with the patient. Reported compliant with treatment with no adverse affects. Tolerating treatment very well. Reported feeling better. Aftercare discussed with the patient. At the time of evaluation, patient was awake alert oriented 3, had no delusions , no auditory or visual hallucinations, no suicidal ideations or homicidal ideations. Medical Problems: Hypertension COPD Diagnostic Results: Reviewed DSM 5 Symptoms Update: Improving with treatment. Medication Change: No Medical Record Reviewed: Yes Mental Status Examination - Cognitive Function Orientation: Person, Place, Situation, Time Memory: Intact Attention: WNL Concentration: WNL Association: WNL Fund of Knowledge: [facility] Decription of patient's judgement and insights: Fair - Mood Mood: Neutral - Affect Affect: Other (Appropriate) - Speech Speech: Appropriate - Formal Thought Process Formal Thought Process: No Impairment Psychotic Thoughts and Behaviors: None - Suicidal Ideation Suicidal Ideation: No - Homicidal Ideation Homicidal Ideation: No Goal/Treatment Plan - Goal/Treatment Plan Need for Continued Stay: Remain at risks for inpatient hospitalization, Discharge may exacerbated symptoms, Severe functional impairment Progress Toward Problem(s) and Goals/Treatment Plan: Improving with treatment. Patient education. Supportive therapy. CBT for relapse prevention. [place] for abstinence. Patient will attend AA/NA meetings after discharge from the hospital. Estimated Date of D/C: 03/11/18 - Smoking Cessation Smoking Cessation Initiated: Yes
[2018-03-11 06:20] VITALS: RESP 18
[2018-03-11] MEDS: Buprenorphine Hydrochloride 2 mg SL SCH (09:18)
[2018-03-11 09:47] VITALS: BP 134/71; PULSE 65; TEMP 97.7; O2SAT 97
--- NOTE | 2018-03-11 16:34 | PCM.PYCHDC ---
Mental Status Examination - Mental Status Examination Orientation: Person, Place, Situation, Time Memory: Intact Mood: Neutral Affect: Other (Appropriate) Speech: Appropriate Attention: WNL Concentration: WNL Association: WNL Fund of Knowledge: WNL Formal Thought Process: No Impairment Description of patient's judgement and insight: Fair Psychotic Thoughts and Behaviors: None Suicidal Ideation: No Current Homicidal Ideation?: No Discharge Summary - Discharge Note Reason for Hospitalization: Opiate use disorder Anxiety disorder Laboratory Data: Reviewed Consultations:: List each consultation separately and include: 1. Reason for request. 2. Findings. 3. Follow-up Summary of Hospital Course include:: 1. Description of specific treatment plan utilized for patients during their course of treatmen. 2. Summarize the time- course for resolution of acute symptoms and/or regressed behaviors. 3. Describe issues identified and worked on during hospitalization. 4. Describe medication utilized. 5. Describe medical problems identified and treated. 6. Reassessment of suicide risk Summary of Hospital Course: 52 y.o. AAM unemployed, single with a 19-year old daughter presented to the ED wanting detox. He uses about a bundle of heroin since the age of 18 but lately "7-8 bags." He went to Methadone clinic in but did not likel it and asked to be tapered of. He in fact used while on methadone. His longest sobriety was 3 years. He has been to detox 3-4 times and used suboxone which he tolerated well and prefers. He completed inpatient rehab at [facility] in 2001. He went to [facility], too. He denies alcohol use, other drug use, and painkiller use. He has been smoking a pack of cigarettes a day. He is currently on probation due to child support issues. During his stay in the hospital, patient was treated with Subutex and other when necessary medications. Patient was attending groups and other activities on the unit. With the above treatment, patient started feeling better, today patient had no withdrawal symptoms and was ready for discharge from the hospital. At the time of evaluation and discharge, patient was awake alert oriented 3, no delusions, no auditory or visual hallucinations, no suicidal ideations or homicidal ideations. Patient was discharged in a stable condition. - Final Diagnosis (DSM 5) Condition upon Discharge: STABLE Disposition: HOME/ ROUTINE Follow-up Treatment Plan: AA/NA meetings Prescriptions/Medication Reconciliation: Gabapentin [Neurontin] 300 mg PO TID #90 cap traZODone [Desyrel] 100 mg PO HS PRN #30 tab PRN Reason: insomnia - Smoking Cessation Smoking Cessation Medication prescribed: Yes - Antipsychotic Medications Pt discharged on 2 or more routine antipsychotic medications: No
== END 2018-03-11 10:50 | disposition home or self-care (01) | DRG 744 ==
LOC: C.ER 16:58 → C.7D 19:09
PROVIDERS: ADMIT Psychiatry & Neurology Psychiatry; ATTEND Psychiatry & Neurology Psychiatry
PROC: HZ2ZZZZ Detoxification Services for Substance Abuse Treatment (ICD-10-PCS; principal; 2018-03-06)
DX: F11.23 Opioid dependence with withdrawal (principal); J44.9 Chronic obstructive pulmonary disease, unspecified; F17.210 Nicotine dependence, cigarettes, uncomplicated; F41.9 Anxiety disorder, unspecified; I10 Essential (primary) hypertension; M19.90 Unspecified osteoarthritis, unspecified site; Z65.3 Problems related to other legal circumstances